=== PATIENT | male | born 1935 | race Caucasian/White ===

== ENCOUNTER → 2017-02-02 | Outpatient (CLI) | payer OTHER, MEDICARE | LOC: BHFA 13:30 | PROVIDERS: ATTEND Internal Medicine Cardiovascular Disease | DX: Z95.0 Presence of cardiac pacemaker (principal) | CPT/HCPCS: 78452; 93017; A9500; J2785 ==

== ENCOUNTER → 2017-02-25 | Outpatient (CLI) | payer OTHER, MEDICARE | LOC: BHFA 14:00 | PROVIDERS: ATTEND Internal Medicine Cardiovascular Disease | DX: I35.0 Nonrheumatic aortic (valve) stenosis (principal) ==

== ENCOUNTER 2017-06-28 10:44 | Observation (INO) | payer OTHER, MEDICARE ==
[2017-06-28] MEDS ORDERED: NS 1,000 ML IV ONE (10:48)
--- NOTE | 2017-06-28 11:18 | CPEKG ---
Heart Rate: 80 RR Interval: 750 P-R Interval: 176 QRSD Interval: 104 QT Interval: 388 QTC Interval: 448 P [place]: -18 QRS [place]: 269 T Wave [place]: -87 EKG Severity - ABNORMAL ECG - EKG Impression: ATRIAL-PACED COMPLEXES EKG Impression: LEFT ANTERIOR FASCICULAR BLOCK EKG Impression: PROBABLE RIGHT VENTRICULAR HYPERTROPHY EKG Impression: NONSPECIFIC T ABNORMALITIES, LATERAL LEADS Electronically Signed By: Eric Gonzalez 28-Jun-2017 12:01:34
[2017-06-28 11:28] LABS: PLATELET COUNT 203 10^3/uL (150-400)
--- NOTE | 2017-06-28 11:30 | PDANEPAE ---
ANE History of Present Illness 81 year old male for SVT ablation. 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 ANE Past Medical History - Cardiovascular History Hx Hypertension: Yes Hx Arrhythmias: Yes Hx Chest Pain: No Hx Coronary Artery / Peripheral Vascular Disease: Yes Hx Palpitations: No Cardiovascular History Comment: Has a pacemaker; Patient had a syncopal event this morning. - Pulmonary History Hx COPD: No Hx Asthma/Reactive Airway Disease: No Hx Recent Upper Respiratory Infection: No Hx Oxygen in Use at Home: No Hx Sleep Apnea: Yes Pulmonary History Comment: Has CPAP. - Endocrine History Hx Diabetes: No Hypothyroid: No Hyperthyroid: No Obesity: no - Renal History Hx Renal Disorders: No - Liver History Hx Hepatic Disorders: No - Neurological & Psychiatric Hx Hx Neurological and Psychiatric Disorders: No - Cancer History Hx Cancer: No - Congenital Disorder History Hx Congenital Disorders: No - GI History GERD: no Hx Gastrointestinal Disorders: No - Chronic Pain History Chronic Pain: Yes (Peripheral neuropathy) - Surgical History Prior Surgeries: ORIF, RIGHT PROXIMAL TIBIA ANE Review of Systems Review of Systems: - Exercise capacity Exercise capacity: >=4 METS - Pacemaker Date Pacemaker Last Checked: November 2013 ANE Patient History - Allergies Allergies/Adverse Reactions: No Known Allergies Allergy (Verified 04/20/14 16:18) - Home Medications Home medications: home medication list seen and reviewed Home Medications: Cholecalciferol Vit D3 [Vitamin D3 (*)] 1,000 units PO DAILY 11/27/13 [Last Taken 06/27/17] Clopidogrel Bisulfate [Plavix (*)] 75 mg PO DAILY 11/27/13 [Last Taken 06/27/17] Herbals/Supplements -Info Only 1 ea PO DAILY 12/18/13 [Last Taken 06/27/17] Pitavastatin Calcium [Livalo] 2 mg PO DAILY #0 04/20/14 [Last Taken 06/27/17] Aspirin EC [Aspirin EC 81 mg (*)] 81 mg PO DAILY 06/23/17 [Last Taken 06/27/17] Cyanocobalamin [Vitamin B12 (*)] 1,000 mcg PO DAILY 06/23/17 [Last Taken ] Metoprolol Succinate Xr [Toprol Xl 25 mg (*)] 12.5 mg PO DAILY 06/23/17 [Last Taken 06/23/17] Pregabalin [Lyrica 100mg (*)] 100 mg PO TID 06/23/17 [Last Taken 06/27/17] Spironolact/Hydrochlorothiazid [Spironolactone-Hctz 25-25 Tab] 1 each PO Q2D [Last Taken 06/27/17] - NPO status NPO Status: no food or drink >8 hours - Anes Hx Anes Hx: no prior problems - Smoking Hx Smoking Status: Never smoked Marijuana use: No - Alcohol Use Alcohol Use: Rarely - Family Anes Hx Family Anes Hx: neg - N/A ANE Labs/Vital Signs - Labs Result Diagrams: 06/28/17 11:20 06/28/17 11:20 - Vital Signs Vital Signs: reviewed preoperatively; see RN documention for details Height: 180 cm Weight: 86.2 kg ANE Physical Exam - Airway Neck exam: FROM Mallampati Score: Class 2 Mouth exam: abnormal chin Mouth image: 1 - Micro fractures in enamel of these teeth. - Pulmonary Pulmonary: no respiratory distress - Cardiovascular Cardiovascular: regular rate and rhythym - ASA Status ASA Status: III ANE Anesthesia Plan Anesthesia Plan: general endotracheal anesthesia Total IV Anesthesia: No
[2017-06-28 11:37] LABS: INR 0.99 (0.83-1.16); PROTIME(PATIENT) 13.3 SEC (12.0-15.0)
--- NOTE | 2017-06-28 12:28 | PDGENHP ---
History & Physical Chief Complaint: syncope this am History of Present Illness: presyncope with svt Relevant Physical Exam: [id number] cta [id number] Cardiorespiratory Assessment: syncope this am with svt, correlates with what looks like short run of at followed by avnrt 400 ms. plan eps and ablation
[2017-06-28] MEDS ORDERED: BUPIVACAINE 0.5% 30 ML SDV ONE (13:35)
[2017-06-28] MEDS ORDERED: LIDOCAINE 1% 300 MG/30 ML SDV ONE (13:35)
[2017-06-28] MEDS ORDERED: ISOPROTERENOL HCL/D5W 0.2 MG/50 ML BAG IV ONE ×2 (13:35→15:51)
[2017-06-28] MEDS ORDERED: HEPARIN 10,000 UNIT/10 ML MDV (1,000 UNIT/ML) ONE (13:35)
[2017-06-28] MEDS ORDERED: PROPOFOL 200 MG/20 ML VIAL ONE (13:39)
[2017-06-28] MEDS ORDERED: fentaNYL 100 MCG/2 ML INJ ONE (13:39)
[2017-06-28] MEDS ORDERED: DESFLURANE 240 ML BOTTLE IH ONE (13:50)
[2017-06-28] MEDS ORDERED: ROCURONIUM 50 MG/5 ML VIAL ONE (14:02)
[2017-06-28] MEDS ORDERED: DEXAMETHASONE 4 MG/ML VIAL ONE (14:06)
[2017-06-28] MEDS ORDERED: ONDANSETRON 4 MG/2 ML VIAL ONE (14:06)
[2017-06-28] MEDS ORDERED: PHENYLEPHRINE 10 MG/ML SDV ONE (14:23)
[2017-06-28] MEDS ORDERED: epHEDrine SULFATE 10 MG/ML SYR ONE ×3 (14:37→15:07)
[2017-06-28] MEDS ORDERED: SUGAMMADEX SODIUM 200 MG/2 ML VIAL IVP ONE (15:54)
[2017-06-28] MEDS ORDERED: fentaNYL 100 MCG/2 ML INJ IVP PRN (16:33)
[2017-06-28] MEDS ORDERED: LR 500 ML IV PRN (16:33)
[2017-06-28] MEDS ORDERED: PHENYLEPHRINE HCL 100 MCG/ML SYR IVP PRN (16:33)
[2017-06-28] MEDS ORDERED: ONDANSETRON 4 MG/2 ML VIAL IVP PRN (16:33)
[2017-06-28] MEDS ORDERED: NALOXONE HCL 0.4 MG/ML INJ IVP PRN (16:33)
--- NOTE | 2017-06-28 17:00 | EPPROC ---
Electrophysiology Procedure Note: ELECTROPHYSIOLOGIC STUDY AND CATHETER MEDIATED ABLATION OF SLOW/FAST AV CEFERINO REENTRY TACHYCARDIA AND 2 SEPARATE FOCAL RIGHT ATRIAL TACHYCARDIAS PROCEDURES PERFORMED: 26467-72 EP evaluation with RA/RV/LA pace/record, with arrhythmia induction 53084-19 EP evaluation with RA/RV pace record, insert/reposition catheter, with arrhythmia induction 95484 Intracardiac catheter ablation, SVT arrhythmogenic focus 43336 3D mapping Fluoroscopy INDICATION: PROCEDURE: Catheters & Anesthesia: The patient arrived in the Electrophysiology Laboratory in the fasting state. The right clavicular region, right groin, and left groin area were prepped and draped in the usual sterile manner. Anesthesiologist Dr. Rodriguez Damon administered general anesthesia. Appropriate non-invasive blood pressure, pulse oximetry and end-tidal CO2 monitoring was established. Patient had a pacemaker previously implanted. Pacemaker is programmed to lower rate of 80 beats per minute to suppress his PVCs, this successful in suppressing his PVCs. During the procedure, pacemaker was reprogrammed to VVI 30 beats per minute, postprocedure pacemaker was reprogrammed to 80-130 beats per minute, DDDR. All catheters were placed percutaneously using the modified Seldinger technique , and advanced into position under fluoroscopic guidance. One #6 Swazi hexapolar non-deflectable electrode catheter was inserted into the right atrial appendage via the left femoral vein (2mm spacing; except the proximal ring which was 25cm from the tip used for unipolar recordings). One #7 Swazi deflectable octapolar electrode catheter was advanced to the His-bundle position via the left femoral vein (2mm spacing). One #7 Swazi deflectable quadrapolar catheter was advanced to the anteroseptal right ventricle via the right femoral vein. One #7 Swazi deflectable catheter with 10 pairs of electrodes was placed via the right femoral vein into the coronary sinus. Heparin was given to keep ACT > 200 s. Programmed stimulation was performed from the right atrium, right ventricle and coronary sinus (left atrium). Parahisian pacing demonstrated constant H-A interval with changing V-A intervals and stimulus-A intervals during capture and loss of capture of proximal RBB proving retrograde conduction over AV node. 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 Ventricular extrastimuli delivered during tachycardia without altering antegrade His bundle activation did not advance next atrial potential, indicating that the tachycardia was not utilizing an accessory pathway for retrograde conduction. VA interval was 120 ms. Post entrainment of the tachycardia from the ventricle, there was VAHV response. Mapping of the right atrium and coronary sinus during AVNRT identified earliest atrial activation above the tendon of Aleena at a level slightly posterior to the level of the His bundle, consistent with retrograde conduction over the fast AV ceferino pathway. A #8 Swazi deflectable quadrapolar electrode catheter (2mm-5mm-2mm spacing) with 3.5 mm irrigated tip electrode and sensor for the 3D mapping Carto system was advanced to the right atrium. 3 D mapping of the inter-atrial septum and coronary sinus was performed and location of the AV node was marked. Agilis sheath was used. RF applications were delivered to the region between the tricuspid annulus and the coronary sinus ostium, at the level of the upper edge of the coronary sinus ostium. Radiofrequency applications were also delivered along the roof of the proximal coronary sinus. Junctional rhythm occurred during all of the RF applications. Two other atrial tachycardias were inducible. Atrial tachycardia 1., cycle length 420-440 milliseconds, ablated at the posterolateral superior aspect of right atrium. Atrial tachycardia 2, cycle length 460-490 milliseconds, ablated along the superior aspect of the Mona terminalis, posterior right atrium. High output pacing was performed at both ablation sites in order to avoid phrenic nerve ablation. Programmed stimulation was continued post ablation at baseline and during graded doses of isoproterenol upto 4mcg/min. 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 There were no echo beats. The catheters were removed. Sheaths were removed in the EP lab after applying subcutaneous purse string suture. The patient was transferred to the cardiovascular holding area in stable condition. There were no apparent complications. Results: A. Spontaneous Intervals: Pre ablation SCL 760 ms AH 150 ms HV 55 ms Post ablation SCL 630 ms AH 110 ms HV 55 ms B. Antegrade AV ceferino function (decremental pacing) Pre ablation FPERP 440 ms AH interval gradually increased to 270 milliseconds prior to Wenckebach AV block. Post ablation FPERP 400 ms longest AH interval post ablation was 190 milliseconds C. Retrograde AV ceferino function (decremental pacing) Pre ablation FPERP 490 ms WBB CL 480 ms D. Arrhythmias: Sustained slow/fast AVNRT Cycle length 420 ms, AH interval 300 ms, ANDERS interval 120 ms VA interval 0 ms AT1, cycle length 420-440 milliseconds, superior aspect of posterolateral right atrium AT2, cycle length 460-490 milliseconds, superior aspect of Mona terminalis CONCLUSIONS 1. 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 ( Slow/fast AVNRT). 2. Successful ablation of the slow AV ceferino pathway with elimination of 1:1 antegrade conduction over the slow AV ceferino pathway, all retrograde conduction over the slow AV ceferino pathway and the inducibility of AVNRT. 3. 2 separate focal atrial tachycardias in the superior aspect of the posterolateral right atrium and the superior aspect of Mona terminalis, successful ablation. 4. No complications. Patient Problems: Problems Problem Status Onset PVC (premature ventricular contraction) Acute Tibia/fibula fracture Acute Skier's thumb Acute
--- NOTE | 2017-06-28 17:01 | CPEKG ---
Heart Rate: 80 RR Interval: 750 P-R Interval: 260 QRSD Interval: 114 QT Interval: 412 QTC Interval: 476 P [place]: 16 QRS [place]: -48 T Wave [place]: 253 EKG Severity - ABNORMAL ECG - EKG Impression: SINUS RHYTHM EKG Impression: FIRST DEGREE AV BLOCK EKG Impression: INCOMPLETE RBBB AND LAFB EKG Impression: PRIOR ECG WITH "ATRIAL PACING". DIFFICULT TO DETERMINE IF THERE IS ATRIAL EKG Impression: PACING IN THIS ECG Electronically Signed By: Ozzie Leo 28-Jun-2017 17:23:27
[2017-06-29] MEDS: PREGABALIN 100 MG CAP PO SCH ×2 (01:37→08:56)
[2017-06-29 04:36] LABS: PLATELET COUNT 195 10^3/uL (150-400)
[2017-06-29 07:19] VITALS: BP 111/56
--- NOTE | 2017-06-29 08:55 | POSTANESTH ---
Post Anesthetic Evaluation Cardiovascular Status: Normal, Stable, Similar to Pre-Op Cond Respiratory Status: Normal, Stable, Similar to Pre-op Cond. Level of Consciousness/Mental Status: Can Participate in Eval, Alert and Oriented Pain Control: Adequate, Prn Tx Ordered Nausea/Vomiting Control: Adequate, Prn Tx Ordered Complications Possibly Related to Anesthesia: None Noted
[2017-06-29] MEDS ORDERED: METOPROLOL SUCCINATE XR 25 MG TAB PO SCH (09:00)
[2017-06-29] MEDS ORDERED: ATORVASTATIN CALCIUM 10 MG TAB PO SCH (09:00)
[2017-06-29] MEDS ORDERED: CYANO/VITAMIN B12 1000 MCG TAB PO SCH (09:00)
[2017-06-29] MEDS ORDERED: ASPIRIN 81 MG CHEWABLE TAB PO SCH (09:00)
[2017-06-29] MEDS ORDERED: CLOPIDOGREL BISULFATE 75 MG TAB PO SCH (09:00)
--- NOTE | 2017-06-29 09:01 | CPEKG ---
Heart Rate: 80 RR Interval: 750 P-R Interval: 256 QRSD Interval: 110 QT Interval: 392 QTC Interval: 453 P [place]: 39 QRS [place]: -76 T Wave [place]: 258 EKG Severity - ABNORMAL ECG - EKG Impression: ATRIAL-PACED COMPLEXES EKG Impression: FIRST DEGREE AV BLOCK EKG Impression: PROBABLE LEFT ATRIAL ABNORMALITY EKG Impression: LEFT ANTERIOR FASCICULAR BLOCK EKG Impression: Diffuse inferolateral T abnormalities, possibly related to T wave memory Electronically Signed By: Eric Gonzalez 29-Jun-2017 10:45:59
--- NOTE | 2017-06-29 10:09 | ASDISCHSUM ---
Discharge Information Plan Status:Home with No Needs Medically Cleared to Leave:06/29/2017 Discharge Date:06/29/2017 CM D/C Disposition:Home, Routine, Self-Care ADT D/C Disposition: Projected Discharge Date:06/29/2017 Transportation at D/C: Discharge Delay Reason: Follow-Up Date:06/29/2017 Discharge Slot: Final Diagnosis: Placement Information Patient Contact Information Contact Name:DEVON Relationship:Other Address: City:[facility] Alternate Phone: State/Zip Code:[place] Email: Financial Information Financial Class:Medicare Primary Plan Desc:MEDICARE OUTPATIENT Primary Plan Number:[id number] Secondary Plan Desc:STEPHANIE/CHRISTINA SUPPLEMENT Secondary Plan Number:[id number] Assessment Information LACE LACE Length of stay for Answers: Less than 1 day current admission Acuity / Level of Answers: No Care: Did the patient have an inpatient admission? Comorbidities - select Answers: Coronary Artery Disease all that apply Opioid dependence / Chronic pain Other Notes: HTN # of Emergency department Answers: 0 visits in the last 6 months Score: 7 Date Signed: 06/29/2017 10:08 AM Electronically Signed By:Judy Snell RN Intervention Information
--- NOTE | 2017-06-29 13:30 | ECHO ---
[email or web address] [address] Main: [phone] Fax: Transthoracic Echocardiogram Name: TEE BAUTISTA MR#: [id number] Study Date: 06/29/2017 Study Time: 09:47 AM Date of : 1935 Age: 81 year(s) Height: 180.3 cm (71 in.) Weight: 86.18 kg (190 lb.) BSA: 2.06 m2 Gender: Male Examination: Echo Indication: F/U post EP study/hx pacer Image Quality: Contrast: Requested by: Eric Gonzalez BP: 111 mmHg/56 mmHg Heart Rate: Rhythm: Indication: F/U post EP study/hx pacer Procedure Staff Hadoop Developer: Ana Ochoa RDCS Reading Physician: Eric Gonzalez MD Requesting Provider: Conclusions: Mild concentric LV hypertrophy. Normal global systolic LV function. There is a pacemaker lead noted in the right ventricle. The right atrium is mildly dilated. Mild mitral valve regurgitation is present. Moderate tricuspid regurgitation is present. Measurements: Chambers Valvular Assessment AV/MV Valvular Assessment TV/PV Normal Normal Normal Name Value Range Name Value Range Name Value Range Ao Daphney (MM): 3.7 cm (2.2 cm-3.7 AV meanP mmHg ( - ) TR Vmax: 2.20 mm/s ( - ) cm) NELSON (VTI): 1.3 cm ( - ) TR PGmax: 19 mmHg ( - ) IVSd (2D): 0.9 cm (0.6 cm-1.1 MV E Vmax: 0.94 m/s ( - ) syst. PAP: 24 mmHg ( - ) cm) MV A Vmax: 0.98 m/s ( - ) LVDd (2D): 4.5 cm (4.2 cm-5.9 MV E/A: 0.96 ( - ) cm) LVDs (2D): 2.7 cm (2.1 cm-4 cm) LVPWd (2D): 0.6 cm (0.6 cm-1 cm) LVOTd 2.0 cm 2.0 cm mm LVEF (MOD4): 67 % (>=55 %) EF Range: 70-75 % Continued Measurements: Chambers Valvular Assessment TV/PV Name Value Name Value LADs: 4.3 cm CVP (est.): 5 mmHg Patient: TEE BAUTISTA Study Date: 06/29/2017 Page 1 of 2 09:47 AM LADs Lon.6 cm LA Area: 13.1 cm2 Findings: Left Ventricle: Normal size left ventricle. Mild concentric LV hypertrophy. Normal global systolic LV function. The ejection fraction is estimated to be 70-75 %. No regional wall motion abnormality. Right Ventricle: Normal size right ventricle. There is a pacemaker lead noted in the right ventricle. Left Atrium: The left atrium is normal in size. Right Atrium: The right atrium is mildly dilated. Mitral Valve: Mild mitral annular calcification. Mild mitral valve regurgitation is present. Aortic Valve: Moderate aortic cusp calcification is present. Trivial aortic valve regurgitation. AV max PG is 19mmHG. AV mean PG is 11mmHG.. Tricuspid Valve: The tricuspid valve is normal in appearance and function. Moderate tricuspid regurgitation is present. The pulmonary artery pressure is normal. Pulmonic Valve: Pulmonary valve not well visualized. Aorta: The aorta is normal. Pericardium: No pericardial effusion. (No Signature Object) Patient: TEE BAUTISTA Study Date: 06/29/2017 Page 2 of 2 09:47 AM [id number]
--- NOTE | 2017-06-29 16:31 | GDS ---
[f rep st] DISCHARGE SUMMARY ADMISSION DIAGNOSES: 1. Plan for AVNRT ablation. 2. Tachycardia. 3. History of permanent pacemaker. 4. History of atrial fibrillation. DISCHARGE DIAGNOSIS: Successful AVNRT ablation with 2 focal right atrial tachycardia ablation. HOSPITAL COURSE: This gentleman was seen in clinic by Dr. Salas Amor on May 13, 2017. He was complaining of palpitations at that time. He has had numerous side effects to Xarelto, Pradaxa and other anticoagulants. They discuss consideration for Watchman LA closure device; however, it was fel t that he should try Coumadin first. Dr. Gonzalez had seen him previously and, due to his SVT, it was rec ommended for him to have ablation for the SVT. He was in agreement with this plan. He was taken to the EP lab by Dr. Gonzalez where he was successful with ablating the AVNRT and 2 focal right atrial tachyc ardias. There were no complications. He was taken to PCU for overnight observation where he has don e well. He has no chest pain, shortness of breath, palpitations. Telemetry shows sinus rhythm. At this time, he currently is stable for discharge. MEDICATIONS: He will go home on vitamin D3 1000 units daily, Plavix 75 mg daily, herbal supplements daily, Livalo 2 mg daily, vitamin B12 1000 mcg daily, aspirin enteric-coated 81 mg daily, metoprolol 12.5 mg daily, spironolactone hydrochlorothiazide 25/25 one every second day, Lyrica 100 mg three dmitry es daily. ALLERGIES: He has no known allergies. PHYSICAL EXAM: HEART: On day of discharge: Heart rate is regular. He does have a 3/6 systolic mur mur. No rubs or gallops are noted. LUNGS: Clear to auscultation. No wheezes, rales, or rhonchi. No peripheral edema. EXTREMITIES: Groin sites are intact with no bleeding, no ecchymosis noted. No tenderness. DISCHARGE PLAN: 1. He will follow up in clinic with Dr. Gonzalez in 10 days. 2. Groin precautions were reviewed with recommendation for no heavy lifting, pushing, pulling over 1 0 pounds over the next week. No sitting in a tub of water for the next week. 3. Should sites bleed, he is to hold firm continuous pressure and go to the nearest emergency room. 4. Full groin precaution guidelines were provided verbally and written. 5. He will follow up with Dr. Gonzalez in clinic. CONDITION ON DISCHARGE: At this time, he currently is stable for discharge. /[id number]/MODL
[2017-06-30] MEDS ORDERED: SPIRONOLACTONE 25 MG TAB PO SCH (09:00)
[2017-06-30] MEDS ORDERED: HYDROCHLOROTHIAZIDE PO SCH (09:00)
[2017-06-30] MEDS ORDERED: HYDROCHLOROTHIAZIDE 25 MG TAB PO SCH (09:00)
[2017-06-30] MEDS ORDERED: SPIRONOLACTONE PO SCH (09:00)
== END 2017-06-29 12:15 | disposition home or self-care (01) ==
LOC: FCATH 10:44 → F2W 15:49
PROVIDERS: ADMIT Internal Medicine Cardiovascular Disease; ATTEND Internal Medicine Cardiovascular Disease
DX: I47.1 Supraventricular tachycardia (principal); R55 Syncope and collapse; G47.33 Obstructive sleep apnea (adult) (pediatric); I10 Essential (primary) hypertension; G62.9 Polyneuropathy, unspecified; Z95.0 Presence of cardiac pacemaker
CPT/HCPCS: 93005; 93306; 93613; 93621; 93623; 93653; 93655; C1730; C1731; C1732; C1766; J1100; J1644; J2370; J2405; J2704; J3010

== ENCOUNTER 2017-12-24 17:42 | Inpatient (IN) | payer OTHER, MEDICARE ==
[2017-12-24] MEDS ORDERED: NS 1,000 ML IV ONE (17:48)
--- NOTE | 2017-12-24 17:50 | EDPHY ---
H & P Time Seen by Provider: 12/24/17 17:49 HPI/ROS: CHIEF COMPLAINT: Right hip pain HISTORY OF PRESENT ILLNESS: Patient is an 82-year-old man who slipped off of a step and fell onto his right hip. He has pain and deformity at the side as well as shortening and rotation of his leg. Normal pulses and sensation distally. He denies any injury to his arms head or neck. He refused pain medication for EMS. He has a history of hypertension and is on Plavix but no other blood thinners. He is not able to bear weight. Severity: Severe Modifying factors: Movement REVIEW OF SYSTEMS: Constitutional: denies: chills, fever, recent illness, recent injury EENTM: denies: blurred vision, double vision, nose congestion Respiratory: denies: cough, shortness of breath Cardiac: denies: chest pain, irregular heart rate, lightheadedness, palpitations Gastrointestinal/Abdominal: denies: abdominal pain, diarrhea, nausea, vomiting, blood streaked stools Genitourinary: denies: dysuria, frequency, hematuria, pain Musculoskeletal: See HPI Skin: denies: lesions, rash, jaundice, bruising Neurological: denies: headache, numbness, paresthesia, tingling, dizziness, weakness Hematologic/Lymphatic: denies: blood clots, easy bleeding, easy bruising Immunologic/allergic: denies: HIV/AIDS, transplant 10 systems reviewed and negative except as noted EXAM: GENERAL: Well-appearing, well-nourished and in no acute distress. HEAD: Atraumatic, normocephalic. EYES: Pupils equal round and reactive to light, extraocular movements intact, sclera anicteric, conjunctiva are normal. ENT: TMs normal, nares patent, oropharynx clear without exudates. Moist mucous membranes. NECK: Normal range of motion, supple without lymphadenopathy or JVD. LUNGS: Breath sounds clear to auscultation bilaterally and equal. No wheezes rales or rhonchi. HEART: Regular rate and rhythm without murmurs, rubs or gallops. ABDOMEN: Soft, nontender, normoactive bowel sounds. No guarding, no rebound. No masses appreciated. BACK: No CVA tenderness, no spinal tenderness, step-offs or deformities EXTREMITIES: The right hip pain, shortening and rotation. NEUROLOGICAL: Cranial nerves II through XII grossly intact. Normal speech. 5/ 5 strength, normal movement in all extremities, normal sensation, normal reflexes PSYCH: Normal mood, normal affect. SKIN: Warm, dry, normal turgor, no visible rashes or lesions. Source: Patient Exam Limitations: No limitations - Medical/Surgical History Hx Asthma: No Hx Chronic Respiratory Disease: No Hx Diabetes: No Hx Cardiac Disease: Yes Hx Renal Disease: No Hx Cirrhosis: No Hx Alcoholism: No Hx HIV/AIDS: No Hx Splenectomy or Spleen Trauma: No Other PMH: IA, CAD with stents, sleep apnea, peripheral neuropathy, pacemaker, CABG x5 2001, lymphoma - Family History Significant Family History: No pertinent family hx - Social History Smoking Status: Never smoked Alcohol Use: Sober Drug Use: None Constitutional: Initial Vital Signs Temperature (C) 36.8 C 12/24/17 17:47 Heart Rate 91 12/24/17 17:47 Respiratory Rate 18 12/24/17 17:47 Blood Pressure 158/65 H 12/24/17 17:47 O2 Sat (%) 94 12/24/17 17:47 O2 Delivery Mode Room Air Allergies/Adverse Reactions: No Known Allergies Allergy (Verified 04/20/14 16:18) Home Medications: Medication Instructions Recorded Cholecalciferol Vit D3 [Vitamin D3 1,000 units PO DAILY 11/27/13 (*)] Clopidogrel Bisulfate [Plavix (*)] 75 mg PO DAILY 11/27/13 Herbals/Supplements -Info Only 1 ea PO DAILY 12/18/13 Pitavastatin Calcium [Livalo] 2 mg PO DAILY #0 04/20/14 Aspirin EC [Aspirin EC 81 mg (*)] 81 mg PO DAILY 06/23/17 Cyanocobalamin [Vitamin B12 (*)] 1,000 mcg PO DAILY 06/23/17 Metoprolol Succinate Xr [Toprol Xl 12.5 mg PO DAILY 06/23/17 25 mg (*)] Pregabalin [Lyrica 100mg (*)] 100 mg PO TID 06/23/17 Spironolact/Hydrochlorothiazid 1 each PO Q2D 06/23/17 [Spironolactone-Hctz 25-25 Tab] Medical Decision Making - Diagnostics Imaging Results: Imaging Impressions Hip X-Ray 12/24/17 17:48 Impression: Nondisplaced intratrochanteric fracture of the right femur. Findings discussed with RICHARD RODRIGUES 12/24/2017 at 18:20. Imaging: Discussed imaging studies w/ credit office manager Radiologist ED Course/Re-evaluation: 6:30 p.m. We discussed the patient's x-ray results. He continues to decline pain medication he states as long as he stays still it is fine. I will admit to the medical service and consult Ortho. 6:35 p.m. I discussed the case with Dr. Gracia 6:40 p.m. Discussed the case with Dr. Lora who has come to the department to evaluate. Differential Diagnosis: Partial list of the Differential diagnosis considered include but were not limited to; hip fracture, contusion, pelvic injury and although unlikely based on the history and physical exam, I also considered femur fracture, head injury , neck injury, syncope. - Data Points Laboratory Results: Laboratory Results 12/24/17 18:00 12/24/17 18:00 12/24/17 12/24/17 12/24/17 18:00 18:00 18:00 WBC 7.79 10^3/uL 10^3/uL (3.80-9.50) RBC 4.94 10^6/uL 10^6/uL (4.40-6.38) Hgb 14.8 g/dL g/dL (13.7-17.5) Hct 41.6 % % (40.0-51.0) MCV 84.2 fL fL (81.5-99.8) MCH 30.0 pg pg (27.9-34.1) MCHC 35.6 g/dL g/dL (32.4-36.7) RDW 13.3 % % (11.5-15.2) Plt Count 190 10^3/uL 10^3/uL (150-400) MPV 11.3 fL fL (8.7-11.7) Neut % (Auto) 75.9 % H % (39.3-74.2) Lymph % (Auto) 15.9 % % (15.0-45.0) [place] % (Auto) 5.6 % % (4.5-13.0) Eos % (Auto) 1.0 % % (0.6-7.6) Baso % (Auto) 0.8 % % (0.3-1.7) Nucleat RBC Rel Count 0.0 % % (0.0-0.2) Absolute Neuts (auto) 5.91 10^3/uL 10^3/uL (1.70-6.50) Absolute Lymphs (auto) 1.24 10^3/uL 10^3/uL (1.00-3.00) Absolute Monos (auto) 0.44 10^3/uL 10^3/uL (0.30-0.80) Absolute Eos (auto) 0.08 10^3/uL 10^3/uL (0.03-0.40) Absolute Basos (auto) 0.06 10^3/uL 10^3/uL (0.02-0.10) Absolute Nucleated RBC 0.00 10^3/uL 10^3/uL (0-0.01) Immature Gran % 0.8 % % (0.0-1.1) Immature Gran # 0.06 10^3/uL 10^3/uL (0.00-0.10) PT 13.4 SEC SEC (12.0-15.0) INR 1.00 (0.83-1.16) APTT 27.8 SEC SEC (23.0-38.0) Sodium 138 mEq/L mEq/L (135-145) Potassium 3.9 mEq/L mEq/L (3.3-5.0) Chloride 101 mEq/L mEq/L (97-110) Carbon Dioxide 27 mEq/l mEq/l (22-31) Anion Gap 10 mEq/L mEq/L (6-14) BUN 27 mg/dL H mg/dL (7-23) Creatinine 1.1 mg/dL mg/dL (0.7-1.3) Estimated GFR > 60 Glucose 123 mg/dL H mg/dL (70-100) Calcium 9.5 mg/dL mg/dL (8.5-10.4) Medications Given: Discontinued Medications Sodium Chloride (Ns) 1,000 mls @ 0 mls/hr IV ONCE ONE; Wide Open PRN Reason: Protocol Stop: 12/24/17 17:49 Last Admin: 12/24/17 17:50 Dose: 1,000 mls Departure - Departure Disposition: [facility] Inpatient Acute Clinical Impression: Fracture, intertrochanteric, right femur Qualifiers: Encounter type: initial encounter Fracture type: closed Fracture alignment: nondisplaced Qualified Code(s): S72.144A - Nondisplaced intertrochanteric fracture of right femur, initial encounter for closed fracture Condition: Fair
[2017-12-24 18:35] LABS: PLATELET COUNT 190 10^3/uL (150-400)
[2017-12-24] MEDS ORDERED: ONDANSETRON DISINTEGRATING 4 MG TAB PO PRN (18:42)
[2017-12-24] MEDS ORDERED: HYDROmorphONE/DILAUDID 1 MG/ML INJ IVP PRN (18:42)
[2017-12-24] MEDS ORDERED: oxyCODONE IR 5 MG TAB PO PRN (18:42)
[2017-12-24] MEDS ORDERED: PROMETHAZINE HCL 25 MG/ML INJ IVP PRN (18:42)
[2017-12-24] MEDS ORDERED: ONDANSETRON 4 MG/2 ML VIAL IVP PRN (18:42)
[2017-12-24] MEDS ORDERED: HYDROCODONE/APAP 5/325 TAB PO PRN (18:42)
[2017-12-24] MEDS ORDERED: NS 1,000 ML IV SCH (18:45)
[2017-12-24 19:03] LABS: PROTIME(PATIENT) 13.4 SEC (12.0-15.0)
--- NOTE | 2017-12-24 19:20 | PDGENHP ---
History and Physical - Chief Complaint fall/hip pain - History of Present Illness 82 yo M with PMH of CAD, peripheral neuropathy and BPH presenting s/p mechanical fall with right hip pain and inability to move right leg. He notes he had been walking around a parking lot trying to find the kiosk so he could pay, he was getting a bit flustered and then tripped over a small curb. He fell onto his righ side and immediately had severe pain and inability to move his right leg. He notes that some people present were able to help him into an ambulance. He states he has a bit of issue with gait instability due to his peripheral neuropathy but despite that he has never had a fall this bad previously. He notes his health recently has otherwise been good--he has not had chest pain, no SOB, no difficulty with exercise of late. He does have a hx of BPH with 2 TURPs in the past and notes that he has been unable to urinate here in the ER although he feels as though his bladder is full. He has had that issue before in the hospital . History Information - Allergies/Home Medication List Allergies/Adverse Reactions: No Known Allergies Allergy (Verified 04/20/14 16:18) Home Medications: Cholecalciferol Vit D3 [Vitamin D3 (*)] 1,000 units PO DAILY 11/27/13 [Last Taken 12/24/17 08:00] Clopidogrel Bisulfate [Plavix (*)] 75 mg PO DAILY 11/27/13 [Last Taken 12/24/17 08:00] Herbals/Supplements -Info Only 1 ea PO DAILY 12/18/13 [Last Taken 12/24/17 08:00 ] Pitavastatin Calcium [Livalo] 2 mg PO DAILY #0 04/20/14 [Last Taken 12/24/17 08: 00] Aspirin EC [Aspirin EC 81 mg (*)] 81 mg PO DAILY 06/23/17 [Last Taken 12/24/17 08:00] Cyanocobalamin [Vitamin B12 (*)] 1,000 mcg PO DAILY 06/23/17 [Last Taken 08:00] Metoprolol Succinate Xr [Toprol Xl 25 mg (*)] 12.5 mg PO DAILY 06/23/17 [Last Taken 12/24/17 08:00] Pregabalin [Lyrica 100mg (*)] 100 mg PO TID 06/23/17 [Last Taken 12/24/17 08:00] Spironolact/Hydrochlorothiazid [Spironolactone-Hctz 25-25 Tab] 1 each PO Q2D [Last Taken 12/24/17 08:00] I have personally reviewed and updated: family history, medical history, social history, surgical history - Past Medical History coronary artery disease (sp 5v CABG and stents), hypertension, hyperlipidemia, SVT (with ablation and PPM) Additional medical history: BPH. peripheral neuropathy. gait instability - Surgical History Reports: coronary bypass surgery, pacemaker/AICD, coronary stent Additional surgical history: TURP x 2 - Family History Positive for: non-pertinent - Social History Smoking Status: Never smoked Alcohol Use: Rarely Drug Use: None Additional social history: lives alone Review of Systems Review of Systems: ROS: 10pt was reviewed & negative except for what was stated in HPI & below Physical Exam Physical Exam: Temp Pulse Resp BP Pulse Ox 36.8 C 72 18 145/86 H 95 12/24/17 17:47 12/24/17 18:00 12/24/17 18:00 12/24/17 18:00 12/24/17 18:00 Constitutional: no apparent distress, appears nourished Eyes: PERRL Ears, Nose, Mouth, Throat: moist mucous membranes, hearing normal Cardiovascular: regular rate and rhythym, no murmur, rub, or gallop, No edema Respiratory: no respiratory distress, no rales or rhonchi Gastrointestinal: normoactive bowel sounds, soft, non-tender abdomen Genitourinary: No no bladder fullness Skin: warm, normal color Musculoskeletal: joint tenderness Neurologic: AAOx3 Psychiatric: interacting appropriately, not anxious, not encephalopathic Lab Data & Imaging Review 12/24/17 18:00 12/24/17 18:00 WBC 7.79 10^3/uL (3.80-9.50) 12/24/17 18:00 RBC 4.94 10^6/uL (4.40-6.38) 12/24/17 18:00 Hgb 14.8 g/dL (13.7-17.5) 12/24/17 18:00 Hct 41.6 % (40.0-51.0) 12/24/17 18:00 MCV 84.2 fL (81.5-99.8) 12/24/17 18:00 MCH 30.0 pg (27.9-34.1) 12/24/17 18:00 MCHC 35.6 g/dL (32.4-36.7) 12/24/17 18:00 RDW 13.3 % (11.5-15.2) 12/24/17 18:00 Plt Count 190 10^3/uL (150-400) 12/24/17 18:00 MPV 11.3 fL (8.7-11.7) 12/24/17 18:00 Neut % (Auto) 75.9 % (39.3-74.2) H 12/24/17 18:00 Lymph % (Auto) 15.9 % (15.0-45.0) 12/24/17 18:00 [place] % (Auto) 5.6 % (4.5-13.0) 12/24/17 18:00 Eos % (Auto) 1.0 % (0.6-7.6) 12/24/17 18:00 Baso % (Auto) 0.8 % (0.3-1.7) 12/24/17 18:00 Nucleat RBC Rel Count 0.0 % (0.0-0.2) 12/24/17 18:00 Absolute Neuts (auto) 5.91 10^3/uL (1.70-6.50) 12/24/17 18:00 Absolute Lymphs (auto) 1.24 10^3/uL (1.00-3.00) 12/24/17 18:00 Absolute Monos (auto) 0.44 10^3/uL (0.30-0.80) 12/24/17 18:00 Absolute Eos (auto) 0.08 10^3/uL (0.03-0.40) 12/24/17 18:00 Absolute Basos (auto) 0.06 10^3/uL (0.02-0.10) 12/24/17 18:00 Absolute Nucleated RBC 0.00 10^3/uL (0-0.01) 12/24/17 18:00 Immature Gran % 0.8 % (0.0-1.1) 12/24/17 18:00 Immature Gran # 0.06 10^3/uL (0.00-0.10) 12/24/17 18:00 PT 13.4 SEC (12.0-15.0) 12/24/17 18:00 INR 1.00 (0.83-1.16) 12/24/17 18:00 APTT 27.8 SEC (23.0-38.0) 12/24/17 18:00 Sodium 138 mEq/L (135-145) 12/24/17 18:00 Potassium 3.9 mEq/L (3.3-5.0) 12/24/17 18:00 Chloride 101 mEq/L (97-110) 12/24/17 18:00 Carbon Dioxide 27 mEq/l (22-31) 12/24/17 18:00 Anion Gap 10 mEq/L (6-14) 12/24/17 18:00 BUN 27 mg/dL (7-23) H 12/24/17 18:00 Creatinine 1.1 mg/dL (0.7-1.3) 12/24/17 18:00 Estimated GFR > 60 12/24/17 18:00 Glucose 123 mg/dL (70-100) H 12/24/17 18:00 Calcium 9.5 mg/dL (8.5-10.4) 12/24/17 18:00 Visualized and Interpreted imaging results: Yes Interpretation: hip X ray: non displaced intratrochanteric femur fracture on the right Assessment & Plan Assessment: Fracture, intertrochanteric, right femur (Acute) 82 yo M with hx of CAD presenting s/p mechanical fall with right hip fracture # right intratrochanteric femur fracture: as a result of a mechanical fall, patient with fairly significant pain and inability to move the right leg. Ortho has been consulted and patient will require operative repair likely in am. For now, goal is pain control with prn narcotics as needed, NPO p MN. Patient does have a significant cardiac hx with both CAD and SVT, hx of CABG, stents and PPM. No active cardiac sxs however and patient with an RCRI score of 1 making him low risk for adverse cardiac event perioperatively. # urinary retention: patient with known bph requiring TURP in the past, will place hussein, retention may be due to pain medications # CAD: with hx of CABG and stents, as above, will continue current medications other than asa/statin which will be held pre op # SVT: s/p ablation, will get ecg pre op # peripheral neuropathy: contributing to propensity to fall, pt/ot to be involved after surgery # osteoporosis: given hip fx secondary to fall from standing, will f/u with PCP to determine further treatment # IP status, will require > 48 hours stay for eval/mgmt of above Patient new to my care. Old records reviewed and summarized as above. Care plan reviewed with ER doctor as above.
[2017-12-24] MEDS ORDERED: MAGNESIUM HYDROXIDE 30 ML UDCUP PO PRN (19:22)
[2017-12-24] MEDS ORDERED: POLYETHYLENE GLYCOL 3350 17 GM PKT PO PRN (19:22)
[2017-12-24] MEDS ORDERED: LACTULOSE 20 GM/30 ML UDCUP PO PRN (19:22)
[2017-12-24] MEDS ORDERED: BISACODYL 10 MG SUPP PR PRN (19:22)
--- NOTE | 2017-12-24 20:30 | GCON ---
DATE OF CONSULTATION: 12/24/2017 REASON FOR CONSULTATION: Right hip pain. HISTORY RELATIVE TO CONSULTATION: The patient is an 82-year-old community ambulator with an occasion al walking stick, who sustained a fall resulting in right hip pain, inability to ambulate. He denies any previous problems relative to his hip. EXAM RELATIVE TO CONSULTATION: EXTREMITIES: He is holding his hip in a slightly externally rotated position. Gentle motion produces pain in the right hip region. His leg lengths are grossly symmetri c. His distal neurovascular exam with the exception of some peripheral neuropathy is grossly intact. IMAGING: AP and lateral radiographs of his hip show evidence of a peritrochanteric femur fracture. ASSESSMENT: Right trochanteric femur fracture. PLAN: Based on the fracture pattern, it was recommended that operative treatment consisting of intra medullary nail fixation (trochanteric fixation nail) be performed. As patient ate at 4 o'clock today , this will be scheduled for tomorrow morning as soon as OR availability allows. /[id number]/MODL
[2017-12-24] MEDS: SENNOSIDES/DOCUSATE SODIUM TAB PO SCH (22:01)
[2017-12-24] MEDS: ACETAMINOPHEN 325 MG TAB PO PRN (22:02)
[2017-12-24] MEDS: PREGABALIN 100 MG CAP PO SCH (22:02)
[2017-12-25] MEDS: ACETAMINOPHEN 325 MG TAB PO PRN (03:11)
[2017-12-25 04:52] LABS: PLATELET COUNT 174 10^3/uL (150-400)
[2017-12-25] MEDS ORDERED: fentaNYL 250 MCG/5 ML INJ ONE (09:38)
[2017-12-25] MEDS ORDERED: PROPOFOL/EMULSION 500 MG/50 ML BOTTLE IV ONE (09:39)
[2017-12-25] MEDS: METOPROLOL SUCCINATE XR 25 MG TAB PO SCH (10:04)
[2017-12-25] MEDS ORDERED: BUPIVACAINE 0.5% 30 ML SDV ONE (10:13)
--- NOTE | 2017-12-25 10:19 | PDANEPAE ---
ANE History of Present Illness 82 year old male with right hip fracture following a fall. History of CAD, SVT s/p ablation, BP ANE Past Medical History - Cardiovascular History Hx Hypertension: Yes Hx Arrhythmias: Yes Hx Chest Pain: No Hx Coronary Artery / Peripheral Vascular Disease: Yes Hx Palpitations: No Cardiovascular History Comment: Has a pacemaker; Patient had a syncopal event this morning. - Pulmonary History Hx COPD: No Hx Asthma/Reactive Airway Disease: No Hx Recent Upper Respiratory Infection: No Hx Oxygen in Use at Home: No Hx Sleep Apnea: Yes Sleep Apnea Screening Result - Last Documented: Positive Pulmonary History Comment: Has CPAP. 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 Date Pacemaker Last Checked: November 2013 ANE Patient History - Allergies Allergies/Adverse Reactions: No Known Allergies Allergy (Verified 04/20/14 16:18) - Home Medications Home Medications: Cholecalciferol Vit D3 [Vitamin D3 (*)] 1,000 units PO DAILY 11/27/13 [Last Taken 12/24/17 08:00] Clopidogrel Bisulfate [Plavix (*)] 75 mg PO DAILY 11/27/13 [Last Taken 12/24/17 08:00] Herbals/Supplements -Info Only 1 ea PO DAILY 12/18/13 [Last Taken 12/24/17 08:00 ] Pitavastatin Calcium [Livalo] 2 mg PO DAILY #0 04/20/14 [Last Taken 12/24/17 08: 00] Aspirin EC [Aspirin EC 81 mg (*)] 81 mg PO DAILY 06/23/17 [Last Taken 12/24/17 08:00] Cyanocobalamin [Vitamin B12 (*)] 1,000 mcg PO DAILY 06/23/17 [Last Taken 08:00] Metoprolol Succinate Xr [Toprol Xl 25 mg (*)] 12.5 mg PO DAILY 06/23/17 [Last Taken 12/24/17 08:00] Pregabalin [Lyrica 100mg (*)] 100 mg PO TID 06/23/17 [Last Taken 12/24/17 08:00] Spironolact/Hydrochlorothiazid [Spironolactone-Hctz 25-25 Tab] 1 each PO Q2D [Last Taken 12/24/17 08:00] - NPO status NPO Since - Liquids (Date): 12/25/17 NPO Since - Liquids (Time): 00:00 NPO Since - Solids (Date): 12/25/17 NPO Since - Solids (Time): 00:00 - Smoking Hx Smoking Status: Never smoked - Alcohol Use Alcohol Use: Sober ANE Labs/Vital Signs - Labs Result Diagrams: 12/25/17 04:34 12/25/17 04:34 - Vital Signs Blood Pressure: 107/59 Heart Rate: 70 Respiratory Rate: 19 O2 Sat (%): 95 Height: 180.34 cm Weight: 79.832 kg ANE Physical Exam - Airway Neck exam: FROM Mallampati Score: Class 2 Mouth exam: normal dental/mouth exam - Pulmonary Pulmonary: no respiratory distress - Cardiovascular Cardiovascular: regular rate and rhythym - ASA Status ASA Status: III, E ANE Anesthesia Plan Anesthesia Plan: GA w LMA
[2017-12-25] MEDS ORDERED: CEFAZOLIN 2 GM/DEXTROSE/100 ML BAG IV ONE ×2 (10:20→10:21)
[2017-12-25] MEDS ORDERED: ceFAZolin 2 GM/DEXTROSE 100 ML IV ONE (10:21)
--- NOTE | 2017-12-25 10:24 | POSTOPPROG ---
Post Op Note Date of Operation: 12/25/17 Surgeon: Tre Lora Anesthesia: GET(General Endotracheal) Pre-op Diagnosis: R pertrochanteric femur fx Post-op Diagnosis: Same Procedure: R TFN Inf/Abcess present in the surg proc area at time of surgery?: No EBL: Minimal
[2017-12-25] MEDS ORDERED: D5W 1/2 NS W/ 20 KCl/L 1,000 ML IV SCH (10:30)
--- NOTE | 2017-12-25 10:35 | PDMN ---
Medical Necessity Medical [place] [facility] [id number] [place], Open Repair: 82 yo w/ right intratrochanteric femur fracture: as a result of a mechanical fall. Ortho consult, pt taken to OR for urgent surgery, s/p Intramedullary nail fixation ( trochanteric fixation nail). [facility] IP only. Hx coronary artery disease (sp 5v CABG and stents), hypertension, hyperlipidemia, SVT (with ablation and PPM), BPH. peripheral neuropathy. gait instability
[2017-12-25] MEDS: CHOLECALCIFEROL VIT D3 1,000 UNITS TAB PO SCH (10:49)
[2017-12-25] MEDS: PREGABALIN 100 MG CAP PO SCH ×3 (10:49→21:42)
[2017-12-25] MEDS ORDERED: ALBUTEROL 3 ML DEYVIAL IH PRN (10:50)
[2017-12-25] MEDS ORDERED: NALOXONE HCL 0.4 MG/ML INJ IVP PRN (10:50)
[2017-12-25] MEDS: SENNOSIDES/DOCUSATE SODIUM TAB PO SCH ×2 (10:50→21:43)
[2017-12-25] MEDS ORDERED: LABETALOL HCL 5 MG/ML 20 ML MDV IVP PRN (10:50)
[2017-12-25] MEDS ORDERED: fentaNYL 100 MCG/2 ML INJ IVP PRN (10:50)
--- NOTE | 2017-12-25 11:05 | HOSPPROG ---
Hospitalist Progress Note Assessment/Plan: Fracture, intertrochanteric, right femur (Acute) 82 yo M with hx of CAD presenting s/p mechanical fall with right hip fracture. First encounter, chart reviewed. # right intratrochanteric femur fracture: as a result of a mechanical fall patient with fairly significant pain and inability to move the right leg. To OR today has a significant cardiac hx with both CAD and SVT, hx of CABG, stents and PPM. No active cardiac sxs however and patient with an RCRI score of 1 making him low risk for adverse cardiac event perioperatively. # urinary retention: patient with known bph requiring TURP in the past, hussein, retention may be due to pain medications # CAD: with hx of CABG and stents, as above, will continue current medications other than asa/statin which will be held pre op given lopressor dose prior to OR # SVT: s/p ablation, EKG, atrial paced # peripheral neuropathy: contributing to propensity to fall, pt/ot to be involved after surgery # osteoporosis: given hip fx secondary to fall from standing, will f/u with PCP to determine further treatment # IP status, will require > 48 hours stay for eval/mgmt of above Pt/OT eval post op Subjective: Pain currently controlled prior to surgery. Feeling well. No other issues. Objective: Vital Signs Temp Pulse Resp BP Pulse Ox 36.6 C 70 19 107/59 L 95 12/25/17 10:16 12/25/17 10:19 12/25/17 10:19 12/25/17 10:19 12/25/17 10:19 Laboratory Results 12/25/17 04:34 12/25/17 04:34 12/24/17 12/25/17 12/26/17 05:59 05:59 05:59 Intake Total 1050 400 Output Total 1005 Balance 45 400 PT 13.4 SEC (12.0-15.0) 12/24/17 18:00 INR 1.00 (0.83-1.16) 12/24/17 18:00 - Physical Exam Constitutional: no apparent distress, appears nourished, not in pain Eyes: PERRL, anicteric sclera, EOMI Ears, Nose, Mouth, Throat: moist mucous membranes, hearing normal, ears appear normal Cardiovascular: regular rate and rhythym, No JVD, No edema Respiratory: no respiratory distress, clear to auscultation, reduced air movement Gastrointestinal: normoactive bowel sounds, No tenderness, No ascites Skin: warm, normal color, No mottled Musculoskeletal: pain with ROM, muscular tenderness, abnormal gait, generalized weakness Neurologic: AAOx3 Psychiatric: interacting appropriately, not anxious, not encephalopathic, thought process linear ICD10 Worksheet Patient Problems: Problems Problem Status Onset PVC (premature ventricular contraction) Acute Tibia/fibula fracture Acute Skier's thumb Acute Fracture, intertrochanteric, right femur Acute
--- NOTE | 2017-12-25 11:42 | POSTANESTH ---
Post Anesthetic Evaluation Cardiovascular Status: Normal, Stable Respiratory Status: Normal, Stable Level of Consciousness/Mental Status: Mildly Sleepy, Arousable Pain Control: Adequate, Prn Tx Ordered Nausea/Vomiting Control: Adequate, Prn Tx Ordered Complications Possibly Related to Anesthesia: None Noted
[2017-12-25] MEDS ORDERED: fentaNYL 100 MCG/2 ML INJ ONE (12:06)
--- NOTE | 2017-12-25 12:12 | GOP ---
DATE OF OPERATION: 12/25/2017 SURGEON: Tre Lora MD ANESTHESIA: General. PREOPERATIVE DIAGNOSIS: Right pertrochanteric femur fracture. POSTOPERATIVE DIAGNOSIS: Right pertrochanteric femur fracture. PROCEDURE PERFORMED: 1. Open treatment, right pertrochanteric femur fracture with intramedullary nail fixation (trochante colt fixation nail). 2. Intraoperative use of fluoroscopy. FINDINGS: ESTIMATED BLOOD LOSS: Minimal. INDICATIONS: The patient is an 82-year-old community ambulator who sustained a fall on the night rahda or to surgery, resulting in a right pertrochanteric femur fracture. Based on the nature of his injur y, it was recommended that operative treatment consisting of intramedullary nail fixation be pursued. The patient acknowledged he understood the potential risks of the operation including, but not limi dewey to, bleeding, infection, neurovascular damage, including loss of limb or limb function, malunion, nonunion, need for hardware removal, pain or functional limitations despite operative treatment, and anesthetic risks. He acknowledged he understood the potential risks, planned procedure, postop plan well, and had all questions answered prior to surgery. He gave his consent for the operative proced ure. DESCRIPTION OF PROCEDURE: The patient was brought to the operating after IV antibiotics were adminis tered. General anesthetic was administered. He was then transferred to the fracture traction table. The left leg was placed in a well-padded leg kc. The right foot was placed in a well-padded tr action boot. Closed reduction with slight distraction inward rotation was performed. Fluoroscopic v iews confirmed anatomic reduction of the fracture site. The right hip was prepped and draped in chad dard sterile fashion. A longitudinal incision was made in line with the femur proximal to the greate r trochanter. Skin and subcutaneous tissue were sharply incised. The gluteal fascia was incised in line with the skin incision. Dissection was carried with a hemostat down to the tip of the greater t rochanter. A guide pin from the [employer] trochanteric fixation nail was placed in the optimal startin g point on the tip of the greater trochanter and advanced down the intramedullary canal of the femur. Fluoroscopic views confirmed favorable positioning. The starting hole drill bit was then utilized to create a hole for nail insertion. An 11 mm diameter short trochanteric fixation nail was then int roduced down the intramedullary canal into the proper position. The aiming guide for the spiral blad e was then placed, and a guide pin was drilled into the center aspect of the femoral head. The pin p osition was confirmed fluoroscopically and found to be in the center of the head on both AP and later al planes less than 1 cm from the joint surface. After pre-drilling with 105 mm step drill, a spiral blade was inserted and position confirmed to be favorable fluoroscopically. The blade was then lock ed into the nail. A distal locking bolt was placed utilizing the aiming guide. Fluoroscopic views c onfirmed favorable implant and fracture positions. Attention was directed toward the closure. The gluteal fascia was closed with 2-0 Vicryl suture in i nterrupted fashion. Subcutaneous tissue closed with 3-0 Vicryl suture in interrupted fashion. Skin closed with skin jude proximally and Dermabond distally. The wounds were dressed with sterile Ada ptic, 4 x 4, and ABD. The patient was taken to the recovery room, extubated, in stable condition pos toperatively. All sponge, needle, and instrument counts were reported to be correct. DRAINS: None. COMPLICATIONS: None. PLAN: Patient will be readmitted for medical management and gait training. He may be weightbearing as tolerated on his operative extremity. /[id number]/MODL
--- NOTE | 2017-12-25 16:29 | ASMTCMCOM ---
CM Note CM Note Notes: 82yr old male admitted after a fall and R hip fx. He has a Hx of CAD-CABG w/stents, Pacer, OP, Peripheral neuropathy. He had surgery today. Therapies to al Tuesday for discharge needs. CM to follow. Date Signed: 12/25/2017 04:28 PM Electronically Signed By:Lois Davenport LCSW
[2017-12-26] MEDS: ACETAMINOPHEN 325 MG TAB PO PRN ×3 (00:37→14:53)
--- NOTE | 2017-12-26 06:04 | SOAPPROG ---
SOAP Progress Note Assessment/Plan: Assessment: R Pertroch femur fx Some pain when up Roger po Right thigh dressing intact, no D/C Limb lengthe and rotation equal Distal NV intact (except peripheral neuropathy) Plan: OOB/PT Probable SNF transfer OK for transfer from ortho standpoint 12/26/17 06:01 Objective: Vital Signs Temp Pulse Resp BP Pulse Ox 36.7 C 76 16 109/53 L 95 12/26/17 04:00 12/26/17 04:00 12/26/17 04:00 12/26/17 04:00 12/26/17 04:00 Laboratory Results 12/25/17 04:34 12/25/17 04:34 12/25/17 12/26/17 12/27/17 05:59 05:59 05:59 Intake Total 1050 1825 Output Total 1005 500 Balance 45 1325 PT 13.4 SEC (12.0-15.0) 12/24/17 18:00 INR 1.00 (0.83-1.16) 12/24/17 18:00 ICD10 Worksheet Patient Problems: Problems Problem Status Onset Fracture, intertrochanteric, right femur Acute PVC (premature ventricular contraction) Acute Skier's thumb Acute Tibia/fibula fracture Acute
--- NOTE | 2017-12-26 06:06 | PDIAF ---
- Diagnosis Code Status: Full Code - Medication Management Discharge Medications: Medications to Continue on Transfer Cholecalciferol Vit D3 [Vitamin D3 (*)] 1,000 units PO DAILY 11/27/13 [Last Taken 12/24/17 08:00] Clopidogrel Bisulfate [Plavix (*)] 75 mg PO DAILY 11/27/13 [Last Taken 12/24/17 08:00] Herbals/Supplements -Info Only 1 ea PO DAILY 12/18/13 [Last Taken 12/24/17 08:00 ] Pitavastatin Calcium [Livalo] 2 mg PO DAILY #0 04/20/14 [Last Taken 12/24/17 08: 00] Aspirin EC [Aspirin EC 81 mg (*)] 81 mg PO DAILY 06/23/17 [Last Taken 12/24/17 08:00] Cyanocobalamin [Vitamin B12 (*)] 1,000 mcg PO DAILY 06/23/17 [Last Taken 08:00] Metoprolol Succinate Xr [Toprol Xl 25 mg (*)] 12.5 mg PO DAILY 06/23/17 [Last Taken 12/24/17 08:00] Pregabalin [Lyrica 100mg (*)] 100 mg PO TID 06/23/17 [Last Taken 12/24/17 08:00] Spironolact/Hydrochlorothiazid [Spironolactone-Hctz 25-25 Tab] 1 each PO Q2D [Last Taken 12/24/17 08:00] Discharge Medications: Refer to the Discharge Home Medication list for PRN reason. - Orders Isolation Type: None Wound Care Instructions: Keep incision clean, dry, covered with 4 x 4. May use op site Date to Remove Sutures/[place]: 01/04/18 Activity/Weight Bearing Restrictions: WBAT RLE Additional Instructions: F/U Dr. Lora in 3 wks - Follow Up Care Current Providers and Referrals: Patient,NotPresent [Unknown] - As per Instructions
--- NOTE | 2017-12-26 08:46 | HOSPPROG ---
Hospitalist Progress Note Assessment/Plan: 82 yo M with hx of CAD presenting s/p mechanical fall with right hip fracture. First encounter, chart reviewed. *right intratrochanteric femur fracture -s/p repair *urinary retention: -hx of BPH, TURP * CAD -hx of CABG w Stents -asa and statin -resumed Plavix *SVT: -s/p ablation -atrial paced *peripheral neuropathy: * osteoporosis: given hip fx secondary to fall from standing, will f/u with PCP to determine further treatment *dvt prophylaxis: LMWH *plan: check H & H, platelet count Subjective: Morris is very concerned about walking today. Objective: Vital Signs Temp Pulse Resp BP Pulse Ox 36.9 C 70 14 115/57 L 94 12/26/17 08:00 12/26/17 08:00 12/26/17 08:00 12/26/17 08:00 12/26/17 08:00 Laboratory Results 12/25/17 04:34 12/25/17 04:34 12/25/17 12/26/17 12/27/17 05:59 05:59 05:59 Intake Total 1050 2325 Output Total 1005 1100 Balance 45 1225 PT 13.4 SEC (12.0-15.0) 12/24/17 18:00 INR 1.00 (0.83-1.16) 12/24/17 18:00 - Physical Exam Constitutional: no apparent distress Eyes: PERRL Ears, Nose, Mouth, Throat: hearing normal Respiratory: no respiratory distress Skin: warm, other (hip with swelling) Musculoskeletal: muscular tenderness, generalized weakness Neurologic: AAOx3 Psychiatric: interacting appropriately ICD10 Worksheet Patient Problems: Problems Problem Status Onset Fracture, intertrochanteric, right femur Acute PVC (premature ventricular contraction) Acute Skier's thumb Acute Tibia/fibula fracture Acute
[2017-12-26] MEDS: SENNOSIDES/DOCUSATE SODIUM TAB PO SCH ×2 (09:41→20:43)
[2017-12-26] MEDS: PREGABALIN 100 MG CAP PO SCH ×3 (09:41→20:44)
[2017-12-26] MEDS: CHOLECALCIFEROL VIT D3 1,000 UNITS TAB PO SCH (09:42)
[2017-12-26] MEDS: METOPROLOL SUCCINATE XR 25 MG TAB PO SCH (09:43)
[2017-12-26] MEDS: ENOXAPARIN 40 MG/0.4 ML SYR SC SCH (09:48)
[2017-12-26] MEDS ORDERED: PNEUMOC 13-VAL CONJ-DIP CRM/PF 0.5 ML SYR IM ONE (12:24)
--- NOTE | 2017-12-26 14:46 | ASMTCMCOM ---
CM Note CM Note Notes: PT/OT rec SNF; pt requests referral to [facility] and referral sent in Allscripts. CM to follow. Date Signed: 12/26/2017 02:45 PM Electronically Signed By:OLGA Varma
[2017-12-26] MEDS ORDERED: NS 1,000 ML IV SCH (16:45)
[2017-12-26] MEDS: ACETAMINOPHEN 500 MG TAB PO SCH (20:44)
[2017-12-27] MEDS: ACETAMINOPHEN 500 MG TAB PO SCH (05:18)
[2017-12-27 07:54] VITALS: BP 102/51
[2017-12-27] MEDS: ENOXAPARIN 40 MG/0.4 ML SYR SC SCH (08:30)
[2017-12-27] MEDS: CHOLECALCIFEROL VIT D3 1,000 UNITS TAB PO SCH (08:30)
[2017-12-27] MEDS: PREGABALIN 100 MG CAP PO SCH (08:30)
[2017-12-27] MEDS: METOPROLOL SUCCINATE XR 25 MG TAB PO SCH (08:31)
[2017-12-27] MEDS: SENNOSIDES/DOCUSATE SODIUM TAB PO SCH (08:32)
[2017-12-27] MEDS ORDERED: CLOPIDOGREL BISULFATE 75 MG TAB PO SCH (09:00)
[2017-12-27] MEDS ORDERED: CYANO/VITAMIN B12 1000 MCG TAB PO SCH (09:00)
--- NOTE | 2017-12-27 09:34 | HOSPPROG ---
Hospitalist Progress Note Assessment/Plan: 82 yo M with hx of CAD presenting s/p mechanical fall with right hip fracture. . *right intratrochanteric femur fracture -s/p repair *urinary retention: -hx of BPH, TURP * CAD -hx of CABG w Stents -asa and statin -resumed Plavix *anemia -stable *SVT: -s/p ablation -atrial paced *peripheral neuropathy: -takes Spironolactone for this * osteoporosis: given hip fx secondary to fall from standing, will f/u with PCP to determine further treatment *dvt prophylaxis: LMWH *plan: dc w f/u with Dr Lora Subjective: Morris is feeling well except for having some neuropathy pain. Objective: Vital Signs Temp Pulse Resp BP Pulse Ox 36.5 C 72 14 102/51 L 95 12/27/17 07:53 12/27/17 07:53 12/27/17 07:53 12/27/17 07:53 12/27/17 07:53 Laboratory Results 12/27/17 04:27 12/25/17 04:34 12/26/17 12/27/17 12/28/17 05:59 05:59 05:59 Intake Total 2325 500 Output Total 1100 1250 Balance 1225 -750 PT 13.4 SEC (12.0-15.0) 12/24/17 18:00 INR 1.00 (0.83-1.16) 12/24/17 18:00 - Physical Exam Constitutional: no apparent distress, appears nourished, uncomfortable Eyes: PERRL Ears, Nose, Mouth, Throat: hearing normal Cardiovascular: regular rate and rhythym, systolic murmur Respiratory: no respiratory distress Gastrointestinal: normoactive bowel sounds Skin: warm, other (r hip w swelling) Musculoskeletal: generalized weakness Neurologic: AAOx3 Psychiatric: interacting appropriately ICD10 Worksheet Patient Problems: Problems Problem Status Onset Fracture, intertrochanteric, right femur Acute PVC (premature ventricular contraction) Acute Skier's thumb Acute Tibia/fibula fracture Acute
--- NOTE | 2017-12-27 10:01 | PDIAF ---
- Diagnosis Diagnosis: right intertrocahnteric hip fx s/p repair Code Status: Full Code - Medication Management Discharge Medications: Medications to Continue on Transfer Cholecalciferol Vit D3 [Vitamin D3 (*)] 1,000 units PO DAILY 11/27/13 [Last Taken 12/24/17 08:00] Clopidogrel Bisulfate [Plavix (*)] 75 mg PO DAILY 11/27/13 [Last Taken 12/24/17 08:00] Herbals/Supplements -Info Only 1 ea PO DAILY 12/18/13 [Last Taken 12/24/17 08:00 ] Pitavastatin Calcium [Livalo] 2 mg PO DAILY #0 04/20/14 [Last Taken 12/24/17 08: 00] Aspirin EC [Aspirin EC 81 mg (*)] 81 mg PO DAILY 06/23/17 [Last Taken 12/24/17 08:00] Cyanocobalamin [Vitamin B12 (*)] 1,000 mcg PO DAILY 06/23/17 [Last Taken 08:00] Metoprolol Succinate Xr [Toprol Xl 25 mg (*)] 12.5 mg PO DAILY 06/23/17 [Last Taken 12/24/17 08:00] Pregabalin [Lyrica 100mg (*)] 100 mg PO TID 06/23/17 [Last Taken 12/24/17 08:00] Acetaminophen [Tylenol ES 500 mg (*)] 1,000 mg PO Q8HRS tab 12/27/17 [Last Taken Unknown] Enoxaparin [Lovenox 40 MG (*)] 40 mg SC DAILY #14 syr 12/27/17 [Last Taken Unknown] Polyethylene Glycol 3350 [Miralax 17 gm (*)] 17 gm PO DAILY PRN pkt 12/27/17 [ Last Taken Unknown] Sennosides/Docusate Sodium [Senokot-S] 1 - 2 tab PO BID tab 12/27/17 [Last Taken Unknown] Spironolact/Hydrochlorothiazid [Spironolactone-Hctz 25-25 Tab] 1 each PO Q2D #0 12/27/17 [Last Taken 12/24/17 08:00] oxyCODONE IR [Oxycodone Ir (*)] 5 - 10 mg PO Q3HRS PRN tab 12/27/17 [Last Taken Unknown] Discharge Medications: Refer to the Discharge Home Medication list for PRN reason. PICC Care - Routine: N/A - Orders Services needed: Physical Therapy, Occupational Therapy Isolation Type: None Oxygen: 1-2 liters Diet Recommendation: no restrictions on diet Diet Texture: Regular Texture Diet Wound Care Instructions: Keep incision clean, dry, covered with 4 x 4. May use op site Date to Remove Sutures/[place]: 01/04/18 Activity/Weight Bearing Restrictions: WBAT RLE Additional Instructions: F/U Dr. Lora in 3 wks aldactone,hctz have been on hold due to low bp, ok to give if systolic is >110 - Labs/Radiology BMP Date: 12/29/17 CBC w/diff Date: 12/29/17 - Follow Up Care Current Providers and Referrals: Tre Lora MD [Medical Doctor] - Patient,NotPresent [Unknown] - As per Instructions
--- NOTE | 2017-12-27 10:45 | GDS ---
DISCHARGE DIAGNOSES: 1. Right intratrochanteric femur fracture. 2. Urinary retention. 3. Coronary artery disease. 4. Anemia. 5. Supraventricular tachycardia. 6. Peripheral neuropathy. 7. Osteoporosis. CONSULTATION: Dr. Lora. HISTORY OF PRESENT ILLNESS: Briefly the patient is an 82-year-old male who has a history of coronary artery disease. He presented to the emergency room after he fell and sustained a right hip fracture. He was seen and evaluated by Dr. Lora, and on 12/25, he had an open treatment, right pertrochanteric femur fracture with intramedullary nail fixation. He has done well in the postop setting. He will follow up with Dr. Lora in the outpatient setting. Today, he will be discharged to [facility]. HOSPITAL COURSE: 1. Right intratrochanteric femur fracture. Overall doing very well. 2. Urinary retention, voiding. He has a history of BPH and a TURP. 3. Coronary artery disease, history of CABG with stents. I resumed his aspirin and Plavix therapy. He is also on a statin. 4. Anemia, stable. 5. SVT, none further. He is atrial paced. 6. Peripheral neuropathy. He takes spironolactone for this. Will resume this when his blood pressure is improved. 7. Osteoporosis. Further followup with his PCP. DISCHARGE CONDITION: Stable. Blood pressure is 102/51, heart rate is 84, respiratory rate of 14, O2 saturations on half a liter are 95%, temperature 36.5 Celsius. DISCHARGE MEDICATIONS: Please see the EMR. DISCHARGE INSTRUCTIONS: 1. Followup with Dr. Lora in 3 weeks. 2. To resume the Aldactone as long as his blood pressure is greater than 110. 3. Repeat labs as ordered. Greater than 30 minutes spent discharging and coordinating the patient's care. Copy requested to: Dr. Lora /[id number]/MODL MTDD
--- NOTE | 2017-12-27 11:16 | ASMTLACE ---
LACE Length of stay for Answers: 4-6 days current admission Acuity / Level of Answers: Yes Care: Did the patient have an inpatient admission? Comorbidities - select Answers: Coronary Artery Disease all that apply History of falls Peripheral vascular disease Other Notes: R hip fx, OP # of Emergency department Answers: 1-2 visits in the last 6 months Score: 15 Date Signed: 12/27/2017 11:15 AM Electronically Signed By:OLGA Varma
--- NOTE | 2017-12-27 11:17 | ASMTCMCOM ---
CM Note CM Note Notes: [facility] medically stable [facility]. Orders sent in Allscripts. Candi with [facility] scheduled wc transport for 11:30. Date Signed: 12/27/2017 11:16 AM Electronically Signed By:OLGA Varma
--- NOTE | 2017-12-27 13:39 | ASDISCHSUM ---
Discharge Information Plan Status:SNF Medically Cleared to Leave: Discharge Date:12/27/2017 12:59 PM CM D/C Disposition:[facility] ADT D/C Disposition:[facility] Care Facility Projected Discharge Date:12/27/2017 11:00 AM Transportation at D/C:Wheelchair Van Discharge Delay Reason: Follow-Up Date:12/27/2017 11:00 AM Discharge Slot: Final Diagnosis: Placement Information Referral Type:*Care Home/SNF Referral ID:[id number] Provider Name:[facility] Address 1:[address] Address 2: City:[place] Selection Factors: State:[place] Patient Contact Information Contact Name:DEVON Relationship:Other Address: City:[facility] Alternate Phone: State/Zip Code:[place] Email: Financial Information Financial Class:Medicare Primary Plan Desc:MEDICARE INPATIENT Primary Plan Number:[id number] Secondary Plan Desc:[employer]/MDR SUPPLEMENT Secondary Plan Number:[id number] Assessment Information LACE LACE Length of stay for Answers: 4-6 days current admission Acuity / Level of Answers: Yes Care: Did the patient have an inpatient admission? Comorbidities - select Answers: Coronary Artery Disease all that apply History of falls Peripheral vascular disease Other Notes: R hip fx, OP # of Emergency department Answers: 1-2 visits in the last 6 months Score: 15 Date Signed: 12/27/2017 11:15 AM Electronically Signed By:OLGA Varma [facility] CM Progress Note CM Note CM Note Notes: 82yr old male admitted after a fall and R hip fx. He has a Hx of CAD-CABG w/stents, Pacer, OP, Peripheral neuropathy. He had surgery today. Therapies to [facility] Tuesday for discharge needs. CM to follow. Date Signed: 12/25/2017 04:28 PM Electronically Signed By:Lois Davenport LCSW [facility] CM Progress Note CM Note CM Note Notes: PT/OT rec SNF; pt requests referral to [facility] and referral sent in Allscripts. CM to follow. Date Signed: 12/26/2017 02:45 PM Electronically Signed By:LOGA Varma [facility] CM Progress Note CM Note CM Note Notes: Pt medically stable for d/c to [facility] SNF. Orders sent in Allscripts. Candi with [facility] scheduled wc transport for 11:30. Date Signed: 12/27/2017 11:16 AM Electronically Signed By:OLGA Varma Intervention Information Intervention Type:*Incorrect Registration Date of Service:12/25/2017 09:49 AM Patient Type:Observation Staff Member:Palma Langley Hours: Discipline: Severity: Comment: Intervention Type:*IM-Signed Date of Service:12/27/2017 10:42 AM Patient Type:Inpatient Staff Member:Marija Segura Hours: Discipline: Severity: Comment:
--- NOTE | 2017-12-29 08:59 | CPEKG ---
Test Reason : OPEN Blood Pressure : / mmHG Vent. Rate : 070 BPM Atrial Rate : 070 BPM P-R Int : 212 ms QRS Dur : 108 ms QT Int : 609 ms P-R-T Axes : -56 -46 008 degrees QTc Int : 658 ms Atrial-paced complexes Incomplete RBBB and LAFB Consider right ventricular hypertrophy Prolonged QT interval Confirmed by Ozzie Leo ([id number]) on 12/29/2017 8:59:27 AM Referred By: Confirmed By:Ozzie Leo
== END 2017-12-27 12:59 | DRG 482 ==
LOC: EDUNIT# → OBSVTOIN 18:45 → F3N 20:08
PROVIDERS: ADMIT Internal Medicine; ATTEND Internal Medicine
PROC: 0QS606Z Reposition Right Upper Femur with Intramedullary Internal Fixation Device, Open Approach (ICD-10-PCS; principal; 2017-12-25 11:15)
DX: S72.101A Unspecified trochanteric fracture of right femur, initial encounter for closed fracture (principal); E86.9 Volume depletion, unspecified; R33.9 Retention of urine, unspecified; W01.0XXA Fall on same level from slipping, tripping and stumbling without subsequent striking against object, initial encounter; Y92.481 Parking lot as the place of occurrence of the external cause; I25.10 Atherosclerotic heart disease of native coronary artery without angina pectoris; D64.9 Anemia, unspecified; M81.0 Age-related osteoporosis without current pathological fracture; G62.9 Polyneuropathy, unspecified; N40.1 Benign prostatic hyperplasia with lower urinary tract symptoms; I10 Essential (primary) hypertension; Z95.810 Presence of automatic (implantable) cardiac defibrillator; Z95.1 Presence of aortocoronary bypass graft; Z95.5 Presence of coronary angioplasty implant and graft; Z23 Encounter for immunization
CPT/HCPCS: 97116-GP; 97161-GP; 97166-GO; 97530-GP; 97535-GO; C1713; G0008; G0009; G8978-GP-CK; G8979-GP-CJ; G8980-GP-CJ; G8987-GO-CL; G8988-GO-CI; J0690; J1650; J2704; J3010

== ENCOUNTER 2018-04-02 19:49 | Inpatient (IN) | payer OTHER, MEDICARE ==
[2018-04-02] MEDS ORDERED: NS 500 ML IV ONE (19:54)
[2018-04-02 20:11] LABS: PLATELET COUNT 200 10^3/uL (150-400)
[2018-04-02 20:19] LABS: INR 1.11 (0.83-1.16); PROTIME(PATIENT) 14.5 SEC (12.0-15.0)
--- NOTE | 2018-04-02 20:19 | EDPHY ---
H & P Time Seen by Provider: 04/02/18 19:54 HPI/ROS: HPI Found down at home. Altered mental status. 82-year-old male by ambulance. This patient was found laying prone on his floor by his ex- who sometimes checks on him. He currently lives alone in a house. The house was described by EMS as neat. He uses a walker to ambulate. He reports that last night he thinks he got up and was not able to find a walker and may have fallen at that time but he is not sure. He then tells me that this morning he thinks that he was sitting on his living room couch and was trying to transfer to the chair next to it and slipped off the couch. He does not know how long he was on the floor for. He does not have any significant complaints. He denies any associated chest pain. No palpitations. No headache. No neck pain. No loss of sensation or weakness in his extremities. He denies any extremity pain. He takes Plavix. ROS: Constitutional: No fever, no chills. As above. Eyes: No discharge. No changes in vision. ENT: No sore throat. No nasal congestion or rhinorrhea. Respiratory: No cough. No shortness of breath. Cardiac: No chest pain, no palpitations. Gastrointestinal: No abdominal pain, no vomiting, no diarrhea. Genitourinary: No hematuria. No dysuria or increased frequency with urination. Musculoskeletal: No back pain. No neck pain. No myalgias or arthralgias. Skin: No rashes. Neurological: No headache. No focal weakness or altered sensation. Past medical history: Dementia, [place], coronary artery disease with stents, sleep apnea, peripheral neuropathy, CABG x5 in 2001, lymphoma. Social history: Nonsmoker. Denies alcohol. Divorce. His ex- checks on him periodically. He currently lives alone. He ambulates with a walker. History of recent right hip surgery. Physical Exam: General Appearance: Alert, no distress. This patient is responding to questions in full sentences but is confused regarding events. This patient appears well-hydrated and well-nourished. Head: Normocephalic atraumatic. Face: Facial bones are stable on palpation. Eyes: Pupils equal and round and reactive to light at 3-2 mm bilaterally, no pallor or injection. No lid erythema or edema. ENT, Mouth: Mucous membranes moist. Dentition is intact. No malocclusion of the jaw. No tongue lacerations or abrasions. Pharynx is clear. The bilateral nasal canals are clear. No septal hematoma. Respiratory: There are no retractions, lungs are clear to auscultation with good air movement bilaterally. Chest wall is stable to AP and lateral palpation. Cardiovascular: Regular rate and rhythm. No murmur appreciated. Gastrointestinal: Abdomen is soft and nontender, no masses, bowel sounds normal. Neurological: Motor sensory function is intact. Cranial nerves are normal. Cerebellar function intact. Skin: Warm and dry, no rashes. No lacerations, abrasions or contusions. Musculoskeletal: Neck is supple and nontender. The trachea is midline. No midline cervical, thoracic, lumbar or sacral tenderness on palpation. No flank tenderness on palpation. Extremities are symmetrical, full range of motion. All joints in the bilateral upper and bilateral lower extremities range without pain or impingement. No tenderness on palpation of the long bones in the bilateral upper and bilateral lower extremities. Psychiatric: No agitation. No depression. Database: EKG: EKG time is 8:03 p.m.; EKG shows a narrow complex normal sinus rhythm with a ventricular rate of 83. The QT interval is prolonged. The CA, QRS intervals are within normal limits. There are no ST-T wave changes indicative of ischemic or injury pattern. No evidence of right heart strain. There is no evidence of WPW, Brugada syndrome, hypertrophic cardiomyopathy. Interpreted by me. Imaging: CT head without contrast: Age-related atrophy. Otherwise negative study. Results were discussed with staff radiologist Dr. Georges Dillard. Chest x-ray AP portable: No acute cardiopulmonary disease process noted. Interpreted by me. Procedures: Emergency department course: Triage vital signs reviewed. He is borderline febrile. Vital signs are otherwise normal. IV was placed. He was started on IV normal saline with 500 cc to be given over the next hour. EKG was obtained and reviewed by myself. CT head without contrast to be obtained. 8:50 p.m., the patient was re-evaluated. He has returned from CT scan. His neurologic Assessment is unchanged from prior. Nonfocal motor and sensory. I explained that we would admit him to the hospital. 9:10 p.m., the patient has developed fever. He will be given a g of Tylenol. No source identified yet. Urinalysis pending. 9:30 p.m., urinalysis indicates infection, he will be given 2 g of IV Rocephin. I spoke with the on-call hospitalist Dr. Green. His case was discussed with her in detail. She accepts this patient for admission to the hospitalist service. The patient's remaining emergency department course under my care has been uneventful. He was admitted in stable condition. Differential Diagnosis: The differential diagnosis on this patient includes but is not limited to, urinary tract infection, dementia, mechanical fall, CVA, intracranial bleed, acute coronary syndrome, syncope, arrhythmia, seizure. This represents a partial list of diagnoses considered. These considerations are based on history , physical exam, past history, reassessment and diagnostic testing. Smoking Status: Never smoked Constitutional: Initial Vital Signs O2 Sat (%) 94 04/02/18 19:54 O2 Delivery Mode Nasal Cannula O2 (L/minute) 2 Allergies/Adverse Reactions: No Known Allergies Allergy (Verified 04/20/14 16:18) Home Medications: Medication Instructions Recorded Cholecalciferol Vit D3 [Vitamin D3 1,000 units PO DAILY 11/27/13 (*)] Clopidogrel Bisulfate [Plavix (*)] 75 mg PO DAILY 11/27/13 Herbals/Supplements -Info Only 1 ea PO DAILY 12/18/13 Pitavastatin Calcium [Livalo] 2 mg PO DAILY #0 04/20/14 Aspirin EC [Aspirin EC 81 mg (*)] 81 mg PO DAILY 06/23/17 Cyanocobalamin [Vitamin B12 (*)] 1,000 mcg PO DAILY 06/23/17 Metoprolol Succinate Xr [Toprol Xl 12.5 mg PO DAILY 06/23/17 25 mg (*)] Pregabalin [Lyrica 100mg (*)] 100 mg PO TID 06/23/17 Acetaminophen [Tylenol ES 500 mg 1,000 mg PO Q8HRS tab 12/27/17 (*)] Enoxaparin [Lovenox 40 MG (*)] 40 mg SC DAILY #14 syr 12/27/17 Polyethylene Glycol 3350 [Miralax 17 gm PO DAILY PRN pkt 12/27/17 17 gm (*)] Sennosides/Docusate Sodium 1 - 2 tab PO BID tab 12/27/17 [Senokot-S] Spironolact/Hydrochlorothiazid 1 each PO Q2D #0 12/27/17 [Spironolactone-Hctz 25-25 Tab] oxyCODONE IR [Oxycodone Ir (*)] 5 - 10 mg PO Q3HRS PRN tab 12/27/17 Medical Decision Making - Diagnostics Imaging Results: Imaging Impressions Chest X-Ray 04/02/18 19:54 Impression: 1. No definite acute posttraumatic abnormality is identified. 2. See above report for additional findings. Head CT 04/02/18 19:54 Impression: 1. Mild atrophy and probable white matter small vessel disease. 2. Negative for acute intracranial abnormality, specifically negative for bleed. 3. See above report for additional findings. Results called and discussed with Alexsandra Roldan MD on 04/02/2018 at 20: 38. - Data Points Laboratory Results: Laboratory Results 04/02/18 19:53 04/02/18 19:53 04/02/18 04/02/18 04/02/18 21:10 20:05 19:53 WBC RBC Hgb Hct MCV MCH MCHC RDW Plt Count MPV Neut % (Auto) Lymph % (Auto) [place] % (Auto) Eos % (Auto) Baso % (Auto) Nucleat RBC Rel Count Absolute Neuts (auto) Absolute Lymphs (auto) Absolute Monos (auto) Absolute Eos (auto) Absolute Basos (auto) Absolute Nucleated RBC Immature Gran % Immature Gran # PT INR APTT Sodium 136 mEq/L mEq/L (135-145) Potassium 3.9 mEq/L mEq/L (3.5-5.2) Chloride 99 mEq/L mEq/L (97-110) Carbon Dioxide 26 mEq/l mEq/l (22-31) Anion Gap 11 mEq/L mEq/L (6-14) BUN 20 mg/dL mg/dL (7-23) Creatinine 1.2 mg/dL mg/dL (0.7-1.3) Estimated GFR 58 Glucose 114 mg/dL H mg/dL (70-100) Calcium 9.4 mg/dL mg/dL (8.5-10.4) Total Bilirubin 1.5 mg/dL H mg/dL (0.1-1.4) Conjugated Bilirubin 0.4 mg/dL mg/dL (0.0-0.5) Unconjugated Bilirubin 1.1 mg/dL mg/dL (0.0-1.1) AST 32 IU/L IU/L (17-59) ALT 28 IU/L IU/L (21-72) Alkaline Phosphatase 63 IU/L IU/L (38-126) Creatine Kinase 864 IU/L H IU/L (0-224) CK-MB (CK-2) Fraction 2.57 ng/mL ng/mL (0.00-4.55) CK-MB (CK-2) % Pending Creatine Kinase Interp Pending POC Troponin I 0.06 ng/mL ng/mL (0.00-0.08) Total Protein 6.8 g/dL g/dL (6.3-8.2) Albumin 4.3 g/dL g/dL (3.5-5.0) Urine Color IESHA Urine Appearance MODERATELY TURBID Urine pH 6.0 (5.0-7.5) Ur Specific [place] 1.018 (1.002-1.030) Urine Protein 2+ H (NEGATIVE) Urine Ketones NEGATIVE (NEGATIVE) Urine Blood 2+ H (NEGATIVE) Urine Nitrate NEGATIVE (NEGATIVE) Urine Bilirubin NEGATIVE (NEGATIVE) Urine Urobilinogen NEGATIVE EU EU (0.2-1.0) Ur Leukocyte Esterase 3+ H (NEGATIVE) Urine RBC 50-182 /hpf H /hpf (0-3) Urine WBC 50-182 /hpf H /hpf (0-3) Ur Epithelial Cells TRACE /lpf /lpf (NONE-1+) Urine Bacteria 2+ /hpf H /hpf (NONE SEEN) Urine Mucus TRACE /lpf /lpf (NONE-1+) Urine Glucose NEGATIVE (NEGATIVE) Urine Opiates Screen Pending Urine Barbiturates Pending Ur Phencyclidine Scrn Pending Ur Amphetamine Screen Pending U Benzodiazepines Scrn Pending Urine Cocaine Screen Pending U Marijuana (THC) Screen Pending Ethyl Alcohol < 10 mg/dL mg/dL (0-10) 04/02/18 04/02/18 19:53 19:53 WBC 17.08 10^3/uL H 10^3/uL (3.80-9.50) RBC 5.68 10^6/uL 10^6/uL (4.40-6.38) Hgb 16.6 g/dL g/dL (13.7-17.5) Hct 48.7 % % (40.0-51.0) MCV 85.7 fL fL (81.5-99.8) MCH 29.2 pg pg (27.9-34.1) MCHC 34.1 g/dL g/dL (32.4-36.7) RDW 13.1 % % (11.5-15.2) Plt Count 200 10^3/uL 10^3/uL (150-400) MPV 11.1 fL fL (8.7-11.7) Neut % (Auto) 86.9 % H % (39.3-74.2) Lymph % (Auto) 5.2 % L % (15.0-45.0) [place] % (Auto) 6.9 % % (4.5-13.0) Eos % (Auto) 0.0 % L % (0.6-7.6) Baso % (Auto) 0.3 % % (0.3-1.7) Nucleat RBC Rel Count 0.0 % % (0.0-0.2) Absolute Neuts (auto) 14.85 10^3/uL H 10^3/uL (1.70-6.50) Absolute Lymphs (auto) 0.88 10^3/uL L 10^3/uL (1.00-3.00) Absolute Monos (auto) 1.18 10^3/uL H 10^3/uL (0.30-0.80) Absolute Eos (auto) 0.00 10^3/uL L 10^3/uL (0.03-0.40) Absolute Basos (auto) 0.05 10^3/uL 10^3/uL (0.02-0.10) Absolute Nucleated RBC 0.00 10^3/uL 10^3/uL (0-0.01) Immature Gran % 0.7 % % (0.0-1.1) Immature Gran # 0.12 10^3/uL H 10^3/uL (0.00-0.10) PT 14.5 SEC SEC (12.0-15.0) INR 1.11 (0.83-1.16) APTT 28.1 SEC SEC (23.0-38.0) Sodium Potassium Chloride Carbon Dioxide Anion Gap BUN Creatinine Estimated GFR Glucose Calcium Total Bilirubin Conjugated Bilirubin Unconjugated Bilirubin AST ALT Alkaline Phosphatase Creatine Kinase CK-MB (CK-2) Fraction CK-MB (CK-2) % Creatine Kinase Interp POC Troponin I Total Protein Albumin Urine Color Urine Appearance Urine pH Ur Specific [place] Urine Protein Urine Ketones Urine Blood Urine Nitrate Urine Bilirubin Urine Urobilinogen Ur Leukocyte Esterase Urine RBC Urine WBC Ur Epithelial Cells Urine Bacteria Urine Mucus Urine Glucose Urine Opiates Screen Urine Barbiturates Ur Phencyclidine Scrn Ur Amphetamine Screen U Benzodiazepines Scrn Urine Cocaine Screen U Marijuana (THC) Screen Ethyl Alcohol Medications Given: Discontinued Medications Acetaminophen (Tylenol) 1,000 mg PO EDNOW ONE Stop: 04/02/18 21:31 Last Admin: 04/02/18 21:31 Dose: 1,000 mg Sodium Chloride (Ns) 500 mls @ 0 mls/hr IV ONCE ONE; Wide Open PRN Reason: Protocol Stop: 04/02/18 19:55 Last Admin: 04/02/18 20:02 Dose: 500 mls Point of Care Test Results: Chemistry 04/02/18 20:05 POC Troponin I 0.06 ng/mL ng/mL (0.00-0.08) Departure - Departure Disposition: [facility] Inpatient Acute Clinical Impression: Altered mental status, Urinary tract infection, Leukocytosis, Elevated CK Referrals: Patient,NotPresent [Unknown] - As per Instructions
[2018-04-02 20:25] LABS: CREATINE KINASE 864 IU/L (0-224)
[2018-04-02] MEDS ORDERED: ACETAMINOPHEN 500 MG TAB ONE (21:23)
[2018-04-02] MEDS ORDERED: ACETAMINOPHEN 500 MG TAB PO ONE (21:30)
[2018-04-02] MEDS ORDERED: ACETAMINOPHEN 325 MG TAB PO PRN (21:48)
[2018-04-02] MEDS ORDERED: ONDANSETRON DISINTEGRATING 4 MG TAB PO PRN (21:48)
[2018-04-02] MEDS ORDERED: HYDROmorphONE/DILAUDID 1 MG/ML INJ IVP PRN (21:48)
[2018-04-02] MEDS ORDERED: HYDROCODONE/APAP 5/325 TAB PO PRN (21:48)
[2018-04-02] MEDS ORDERED: oxyCODONE IR 5 MG TAB PO PRN (21:48)
[2018-04-02] MEDS ORDERED: PROMETHAZINE HCL 25 MG/ML INJ IVP PRN (21:48)
[2018-04-02] MEDS ORDERED: ONDANSETRON 4 MG/2 ML VIAL IVP PRN (21:48)
--- NOTE | 2018-04-02 21:54 | PDGENHP ---
History and Physical - Chief Complaint weakness - History of Present Illness 82 yo M with PMH of dementia, CAD, peripheral neuropathy and gait instability as well as recent fall with hip fracture s/p ORIF in December who presents from home after falling this morning and being unable to get up. Patient himself does not recall the event very well, what he does remember is that at some point either last night or this morning getting up to walk somewhere and ' slipping' to the ground in his kitchen and being unable to get up after that. He notes that he just had no strength at all. Apparently, per ED doctor report, patients ex reported that she had called the patient this morning and spoken to him on the phone at which time he was apparently normal with no complaints. 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 AT the time of my evaluation patient is awake and alert and other than not remembering how he got on the floor is oriented x 3 and denies any significant issues. He notes that prior to today's weakness he was not having any new issues including fever or chills, urinary issues, shortness of breath or chest pain. He states that overall since his surgery he has been getting stronger and has been ambulating with a walker but overall doing well with that. He states due to being on the floor all day, he has not had anything to eat or drink since this morning, and has not urinated very much. History Information - Allergies/Home Medication List Allergies/Adverse Reactions: No Known Allergies Allergy (Verified 04/20/14 16:18) Home Medications: Cholecalciferol Vit D3 [Vitamin D3 (*)] 1,000 units PO DAILY 11/27/13 [Last Taken 12/24/17 08:00] Clopidogrel Bisulfate [Plavix (*)] 75 mg PO DAILY 11/27/13 [Last Taken 12/24/17 08:00] Herbals/Supplements -Info Only 1 ea PO DAILY 12/18/13 [Last Taken 12/24/17 08:00 ] Pitavastatin Calcium [Livalo] 2 mg PO DAILY #0 04/20/14 [Last Taken 12/24/17 08: 00] Aspirin EC [Aspirin EC 81 mg (*)] 81 mg PO DAILY 06/23/17 [Last Taken 12/24/17 08:00] Cyanocobalamin [Vitamin B12 (*)] 1,000 mcg PO DAILY 06/23/17 [Last Taken 08:00] Metoprolol Succinate Xr [Toprol Xl 25 mg (*)] 12.5 mg PO DAILY 06/23/17 [Last Taken 12/24/17 08:00] Pregabalin [Lyrica 100mg (*)] 100 mg PO TID 06/23/17 [Last Taken 12/24/17 08:00] I have personally reviewed and updated: family history, medical history, social history, surgical history - Past Medical History coronary artery disease (sp 5v CABG and stents), hypertension, hyperlipidemia, SVT (with ablation and PPM) Additional medical history: BPH. peripheral neuropathy. gait instability - Surgical History Reports: coronary bypass surgery, pacemaker/AICD, coronary stent Additional surgical history: TURP x 2. ORIF December 2017 - Family History Positive for: non-pertinent - Social History Smoking Status: Never smoked Alcohol Use: None Drug Use: None Additional social history: lives alone Review of Systems Review of Systems: ROS: 10pt was reviewed & negative except for what was stated in HPI & below Physical Exam Physical Exam: Temp Pulse Resp BP Pulse Ox 39.1 C H 74 18 127/58 H 98 04/02/18 21:05 04/02/18 21:05 04/02/18 21:05 04/02/18 21:05 04/02/18 21:05 Constitutional: no apparent distress, appears nourished Eyes: PERRL, anicteric sclera Ears, Nose, Mouth, Throat: moist mucous membranes, hearing normal Cardiovascular: systolic murmur, No edema Respiratory: no respiratory distress, no rales or rhonchi Gastrointestinal: normoactive bowel sounds, soft, non-tender abdomen Genitourinary: no bladder tenderness Skin: warm, normal color Musculoskeletal: full muscle strength Neurologic: AAOx3, CN II-XII Intact Psychiatric: interacting appropriately, not anxious, not encephalopathic Lab Data & Imaging Review 04/02/18 19:53 04/02/18 19:53 WBC 17.08 10^3/uL (3.80-9.50) H 04/02/18 19:53 RBC 5.68 10^6/uL (4.40-6.38) 04/02/18 19:53 Hgb 16.6 g/dL (13.7-17.5) 04/02/18 19:53 Hct 48.7 % (40.0-51.0) 04/02/18 19:53 MCV 85.7 fL (81.5-99.8) 04/02/18 19:53 MCH 29.2 pg (27.9-34.1) 04/02/18 19:53 MCHC 34.1 g/dL (32.4-36.7) 04/02/18 19:53 RDW 13.1 % (11.5-15.2) 04/02/18 19:53 Plt Count 200 10^3/uL (150-400) 04/02/18 19:53 MPV 11.1 fL (8.7-11.7) 04/02/18 19:53 Neut % (Auto) 86.9 % (39.3-74.2) H 04/02/18 19:53 Lymph % (Auto) 5.2 % (15.0-45.0) L 04/02/18 19:53 [place] % (Auto) 6.9 % (4.5-13.0) 04/02/18 19:53 Eos % (Auto) 0.0 % (0.6-7.6) L 04/02/18 19:53 Baso % (Auto) 0.3 % (0.3-1.7) 04/02/18 19:53 Nucleat RBC Rel Count 0.0 % (0.0-0.2) 04/02/18 19:53 Absolute Neuts (auto) 14.85 10^3/uL (1.70-6.50) H 04/02/18 19:53 Absolute Lymphs (auto) 0.88 10^3/uL (1.00-3.00) L 04/02/18 19:53 Absolute Monos (auto) 1.18 10^3/uL (0.30-0.80) H 04/02/18 19:53 Absolute Eos (auto) 0.00 10^3/uL (0.03-0.40) L 04/02/18 19:53 Absolute Basos (auto) 0.05 10^3/uL (0.02-0.10) 04/02/18 19:53 Absolute Nucleated RBC 0.00 10^3/uL (0-0.01) 04/02/18 19:53 Immature Gran % 0.7 % (0.0-1.1) 04/02/18 19:53 Immature Gran # 0.12 10^3/uL (0.00-0.10) H 04/02/18 19:53 PT 14.5 SEC (12.0-15.0) 04/02/18 19:53 INR 1.11 (0.83-1.16) 04/02/18 19:53 APTT 28.1 SEC (23.0-38.0) 04/02/18 19:53 Sodium 136 mEq/L (135-145) 04/02/18 19:53 Potassium 3.9 mEq/L (3.5-5.2) 04/02/18 19:53 Chloride 99 mEq/L (97-110) 04/02/18 19:53 Carbon Dioxide 26 mEq/l (22-31) 04/02/18 19:53 Anion Gap 11 mEq/L (6-14) 04/02/18 19:53 BUN 20 mg/dL (7-23) 04/02/18 19:53 Creatinine 1.2 mg/dL (0.7-1.3) 04/02/18 19:53 Estimated GFR 58 04/02/18 19:53 Glucose 114 mg/dL (70-100) H 04/02/18 19:53 Calcium 9.4 mg/dL (8.5-10.4) 04/02/18 19:53 Total Bilirubin 1.5 mg/dL (0.1-1.4) H 04/02/18 19:53 Conjugated Bilirubin 0.4 mg/dL (0.0-0.5) 04/02/18 19:53 Unconjugated Bilirubin 1.1 mg/dL (0.0-1.1) 04/02/18 19:53 AST 32 IU/L (17-59) 04/02/18 19:53 ALT 28 IU/L (21-72) 04/02/18 19:53 Alkaline Phosphatase 63 IU/L (38-126) 04/02/18 19:53 Creatine Kinase 864 IU/L (0-224) H 04/02/18 19:53 CK-MB (CK-2) Fraction 2.57 ng/mL (0.00-4.55) 04/02/18 19:53 CK-MB (CK-2) % 0.3 % (0.0-4.0) 04/02/18 19:53 Creatine Kinase Interp NEGATIVE (NEGATIVE) 04/02/18 19:53 POC Troponin I 0.06 ng/mL (0.00-0.08) 04/02/18 20:05 Total Protein 6.8 g/dL (6.3-8.2) 04/02/18 19:53 Albumin 4.3 g/dL (3.5-5.0) 04/02/18 19:53 Urine Color IESHA 04/02/18 21:10 Urine Appearance MODERATELY TURBID 04/02/18 21:10 Urine pH 6.0 (5.0-7.5) 04/02/18 21:10 Ur Specific [place] 1.018 (1.002-1.030) 04/02/18 21:10 Urine Protein 2+ (NEGATIVE) H 04/02/18 21:10 Urine Ketones NEGATIVE (NEGATIVE) 04/02/18 21:10 Urine Blood 2+ (NEGATIVE) H 04/02/18 21:10 Urine Nitrate NEGATIVE (NEGATIVE) 04/02/18 21:10 Urine Bilirubin NEGATIVE (NEGATIVE) 04/02/18 21:10 Urine Urobilinogen NEGATIVE EU (0.2-1.0) 04/02/18 21:10 Ur Leukocyte Esterase 3+ (NEGATIVE) H 04/02/18 21:10 Urine RBC 50-182 /hpf (0-3) H 04/02/18 21:10 Urine WBC 50-182 /hpf (0-3) H 04/02/18 21:10 Ur Epithelial Cells TRACE /lpf (NONE-1+) 04/02/18 21:10 Urine Bacteria 2+ /hpf (NONE SEEN) H 04/02/18 21:10 Urine Mucus TRACE /lpf (NONE-1+) 04/02/18 21:10 Urine Glucose NEGATIVE (NEGATIVE) 04/02/18 21:10 Ethyl Alcohol < 10 mg/dL (0-10) 04/02/18 19:53 Visualized and Interpreted Chest x-ray results: Yes Chest X-Ray results: no infiltrate Visualized and Interpreted imaging results: Yes Interpretation: head CT: nothing acute Visualized and Interpreted EKG results: Yes EKG Interpretation: Positive for: normal sinsus rhythm EKG additional interpertation: prolonged qt Assessment & Plan Assessment: Altered mental status (Acute) Urinary tract infection (Acute) Leukocytosis (Acute) Elevated CK (Acute) 82 yo M with hx of CAD, dementia, peripheral neuropathy and gait instability presenting with generalized weakness and being down at home for unknown period of time with e/o UTI # generalized weakness: came on abruptly it seems and without much preceding sxs , currently patient feels stronger but still has not attempted walking, suspect related to infection as next, pt/ot/CM to evaluate. Will monitor on tele and get serial trops given hx of cad # UTI: UA consistent with infection and given generalized weakness suspect this represents true infection, started on ctx pending culture data, does have hx of BPH and chronic retention so will bladder scan as well # prolonged qt: without hx of syncope but patient with limited memory of the events preceding being on the ground, will monitor on tele, repeat ecg in am, avoid qt prolonging meds, check mag # metabolic encephalopathy: as evidenced by having lost a significant amount of time in terms of memory of what occurred prior to presentation however all in all largely seems improved at this point with patient oriented x 3 (slightly off on the date but very close), will continue to monitor, does have mild underlying dementia # recent hip fracture: s/p ORIF of right hip, no significant pain or deformity noted on exam but given weakness and patient being down will get hip xray to r/ o injury # rhabdomyolysis: mild in setting of being down for likely hours, will get repeat ck in am, IVF # peripheral neuropathy: possibly contributing to his difficulty getting up, pt/ ot # CAD: without c/o chest pain but as above will get serial trops and ecg # IP status, suspect patient will require > 48 hours stay for eval/mgmt of above Patient new to my care. Old records reviewed and summarized as above. care plan reviewed with ER doctor as above.
[2018-04-02] MEDS ORDERED: MAGNESIUM SULF 2 GM/WATER 50 ML IV ONE (22:11)
--- NOTE | 2018-04-02 23:10 | CPEKG ---
Test Reason : OPEN Blood Pressure : / mmHG Vent. Rate : 083 BPM Atrial Rate : 083 BPM P-R Int : 205 ms QRS Dur : 112 ms QT Int : 484 ms P-R-T Axes : -12 225 003 degrees QTc Int : 569 ms Sinus rhythm Prolonged QT interval Confirmed by Alexsandra Roldan ([id number]) on 04/02/2018 11:09:57 PM Referred By: Alexsandra Roldan Confirmed By:Alexsandra Roldan
[2018-04-03 07:48] LABS: PLATELET COUNT 171 10^3/uL (150-400)
[2018-04-03] MEDS: GLUCOSAMINE/CHONDROITIN CAP PO SCH ×2 (09:00→20:27)
[2018-04-03] MEDS ORDERED: HYDROCHLOROTHIAZIDE 25 MG TAB PO SCH (09:00)
[2018-04-03] MEDS ORDERED: PREGABALIN 100 MG CAP PO SCH (09:00)
[2018-04-03] MEDS: CYANO/VITAMIN B12 1000 MCG TAB PO SCH (09:01)
[2018-04-03] MEDS: SPIRONOLACTONE 25 MG TAB PO SCH ×2 (09:02→11:36)
[2018-04-03] MEDS: ASPIRIN EC 81 MG TAB PO SCH (09:02)
[2018-04-03] MEDS: ATORVASTATIN CALCIUM 10 MG TAB PO SCH (09:03)
[2018-04-03] MEDS: CLOPIDOGREL BISULFATE 75 MG TAB PO SCH (09:04)
[2018-04-03] MEDS: CHOLECALCIFEROL VIT D3 1,000 UNITS TAB PO SCH (09:04)
[2018-04-03] MEDS: ENOXAPARIN 40 MG/0.4 ML SYR SC SCH (09:09)
[2018-04-03 09:24] LABS: CREATINE KINASE 4100 IU/L (0-224)
--- NOTE | 2018-04-03 10:43 | ASMTCMCOM ---
CM Note CM Note Notes: Pts case discussed w/ Talita Machado NP and LALO Bill. Pt is a 82 y/o man admitted for confusion, found down at home, UTI and elevated CK. Pt has an ex that is involved. CM spoke to Kaitlynn with [facility]. She is recommending HC. Pt told her that he is not interested in SNF. PT/OT has been ordered and awaiting recommendations. Pt has private duty caregivers through [facility]. Wound care ordered. Needs are TBD at this time. CM to follow. Plan: TBD Date Signed: 04/03/2018 10:42 AM Electronically Signed By:DYLAN Davis
[2018-04-03] MEDS: NS 1,000 ML IV SCH ×2 (10:54→20:11)
--- NOTE | 2018-04-03 11:34 | WOCRNPDOC ---
WOCRN Advanced Assessment Note - Skin Integrity Problem, Advanced Assess Coccyx Dressing Type: Mepilex Border Dressing Description: Clean/Dry Exudate Amount: Scant Exudate Characteristic(s): Serous Integumentary Issue Intervention: Visualized Under Dressing Wound Bed Constitution: Red/[place] - Non Granular Tissue (100%) Wound Edges: Attached Site Measurement - Head-to-Toe Length X Width X Depth (cm): 1.4x1x0.1 Pressure Injury Stage: Stage 2 Pressure Injury Present on Admit: Yes Skin Integrity Problem Comment: Very shallow wound that is already epithelizing. No concerns. Education with patient re: pressure injury etiology, care and treatment plan. Wound care will follow. LALO Bill in room.
--- NOTE | 2018-04-03 11:41 | PDMN ---
Medical Necessity Medical necessity: [facility] M300 UTI, A-2 days: 82 yo w/ mechanical fall at home, unable to get up. Workup reveals acute UTI w/ AMS, leukocytosis and elevated CK. Temp 39.1. IVF and IV antibx started. Cont tele monitoring. PT/OT evals pending. Urine cx pending. Anticipate>2MN for monitoring and tx of above. Meets [facility] IP criteria for UTI w/ AMS, ongoing IV antibx needs beyond obs care. Hx dementia, CAD, CABG, HTN, HLD, SVT, TURP, pacemaker, peripheral neuropathy and gait instability as well as recent fall with hip fracture s/p ORIF in December 2017.
[2018-04-03] MEDS: PREGABALIN 100 MG CAP PO SCH ×2 (12:13→20:27)
--- NOTE | 2018-04-03 12:13 | HOSPPROG ---
Hospitalist Progress Note Assessment/Plan: 82 yo M with hx of CAD, dementia, peripheral neuropathy and gait instability presenting with generalized weakness and being down at home for unknown period of time with e/o UTI. First encounter, chart reviewed. # generalized weakness: -came on abruptly -currently patient feels stronger -still weak -suspect related to infection -pt/ot/CM to evaluate -Will monitor on tele -serial trops mildly elevated -cont to trend # UTI: -UA consistent with infection -on ctx -pending culture data -does have hx of BPH -pt doesn't not urinate enough or drink enough water # prolonged qt: -paced -without hx of syncope -will monitor on tele -repeat ecg reviewed,personally prolonged -avoid qt prolonging meds, DC Zofran -mag stable #Rhabdo -mild -elevated CPK -cont IVF hydration -increase rate to 150 -check labs in am # metabolic encephalopathy: -as evidenced by having lost a significant amount of time in terms of memory -seems improved at this point with patient oriented x 3 -continue to monitor, -does have mild underlying dementia #Fever -in the setting of UTI -BC not done -follow #Leukocytosis: -in the setting of infection -recheck labs in the am # recent hip fracture: -s/p ORIF of right hip, -no significant pain -if pain occurs consider xray # peripheral neuropathy: -possibly contributing to his difficulty getting up, pt/ot # CAD: -without c/o chest pain -mildly bumped trop -follow -paced #Dispo -follow trop -follow CPK -await urine cx -labs -PT/OT -will need [facility] PT/OT/SENIOR ANALYSIS SPECIALIST -possibly private duty arranged by his ex- -will not go to SNF -DC likely 1-2 days depending on labs and weakness # IP status, suspect patient will require > 48 hours stay for eval/mgmt of above Subjective: Feeling much better today. Still weak but better. No pain currently. Objective: Vital Signs Temp Pulse Resp BP Pulse Ox 37.6 C 70 18 118/53 L 94 04/03/18 11:29 04/03/18 11:29 04/03/18 11:29 04/03/18 11:29 04/03/18 11:29 Laboratory Results 04/03/18 07:40 04/03/18 07:40 04/02/18 04/03/18 04/04/18 05:59 05:59 05:59 Intake Total 1400 250 Output Total 200 300 Balance 1200 -50 PT 14.5 SEC (12.0-15.0) 04/02/18 19:53 INR 1.11 (0.83-1.16) 04/02/18 19:53 - Physical Exam Constitutional: no apparent distress, appears nourished, not in pain Eyes: PERRL, anicteric sclera, EOMI Ears, Nose, Mouth, Throat: moist mucous membranes, hearing normal, ears appear normal Cardiovascular: irregularly irregular, No JVD, No tachycardia, No edema Respiratory: no respiratory distress, no rales or rhonchi, reduced air movement Gastrointestinal: normoactive bowel sounds, No tenderness, No ascites Skin: warm, normal color, No mottled Musculoskeletal: normal joint ROM, no joint effusions, generalized weakness Neurologic: AAOx3 Psychiatric: not anxious, not encephalopathic, thought process linear, poor memory ICD10 Worksheet Patient Problems: Problems Problem Status Onset PVC (premature ventricular contraction) Acute Tibia/fibula fracture Acute Skier's thumb Acute Fracture, intertrochanteric, right femur Acute Altered mental status Acute Urinary tract infection Acute Leukocytosis Acute Elevated CK Acute
[2018-04-03] MEDS ORDERED: BUPIVACAINE 0.5% 30 ML SDV ONE (14:36)
--- NOTE | 2018-04-03 15:57 | CPEKG ---
Test Reason : OPEN Blood Pressure : / mmHG Vent. Rate : 071 BPM Atrial Rate : 072 BPM P-R Int : 158 ms QRS Dur : 119 ms QT Int : 596 ms P-R-T Axes : -39 262 005 degrees QTc Int : 648 ms Sinus rhythm Confirmed by Ja Lui ([id number]) on 04/03/2018 3:56:57 PM Referred By: Asa Prado Confirmed By:Ja Lui
[2018-04-04] MEDS: NS 1,000 ML IV SCH (03:04)
[2018-04-04 06:26] LABS: CREATINE KINASE 1221 IU/L (0-224)
--- NOTE | 2018-04-04 08:39 | HOSPPROG ---
Hospitalist Progress Note Assessment/Plan: 82 yo M with hx of CAD, dementia, peripheral neuropathy and gait instability presenting with generalized weakness and being down at home for unknown period of time with e/o UTI. First encounter, chart reviewed. # generalized weakness -suspect secondary to UTI -has an elevated trop/likely demand ischemia # UTI -ceftriaxone 04/02 -UA shows gram neg syed - sensitive -hx of BPH -fevers - will follow, no blood cx noted # prolonged qt: -paced -without hx of syncope -will monitor on tele -repeat ecg reviewed,personally prolonged -avoid qt prolonging meds, DC Zofran -mag stable #Rhabdo -improved today, will decrease fluids # metabolic encephalopathy -has underlying dementia -improving #Leukocytosis: -in the setting of infection -recheck labs in the am # recent hip fracture: -s/p ORIF of right hip, -no significant pain -is now fearful to go to any SNF-said it was a bad experience. # peripheral neuropathy: -possibly contributing to his difficulty getting up, pt/ot # CAD: -without c/o chest pain -mildly bumped trop -paced #Dispo: pending, will get blood cx due to ongoing fever/ spoke to Caitlin ([facility]) at 17:20 to update her on him. She has arranged 8 hours a day of care for him. She is his ex but helps Morris since he is alone. Subjective: Morris wants to go home badly. Objective: Vital Signs Temp Pulse Resp BP Pulse Ox 36.7 C 75 21 H 136/63 H 92 04/04/18 07:37 04/04/18 07:37 04/04/18 07:37 04/04/18 07:37 04/04/18 07:37 Laboratory Results 04/04/18 05:30 04/04/18 05:30 04/03/18 04/04/18 04/05/18 05:59 05:59 05:59 Intake Total 1400 5948 Output Total 200 1525 Balance 1200 4423 PT 14.5 SEC (12.0-15.0) 04/02/18 19:53 INR 1.11 (0.83-1.16) 04/02/18 19:53 - Physical Exam Constitutional: appears nourished Eyes: PERRL Ears, Nose, Mouth, Throat: hard of hearing Cardiovascular: regular rate and rhythym Respiratory: no respiratory distress Gastrointestinal: normoactive bowel sounds Skin: warm Musculoskeletal: full muscle strength Neurologic: AAOx3 Psychiatric: interacting appropriately, not encephalopathic, thought process linear, poor memory ICD10 Worksheet Patient Problems: Problems Problem Status Onset Altered mental status Acute Elevated CK Acute Leukocytosis Acute Urinary tract infection Acute Fracture, intertrochanteric, right femur Acute PVC (premature ventricular contraction) Acute Skier's thumb Acute Tibia/fibula fracture Acute
[2018-04-04] MEDS: GLUCOSAMINE/CHONDROITIN CAP PO SCH ×2 (09:06→21:13)
[2018-04-04] MEDS: CYANO/VITAMIN B12 1000 MCG TAB PO SCH (09:06)
[2018-04-04] MEDS: ASPIRIN EC 81 MG TAB PO SCH (09:07)
[2018-04-04] MEDS: PREGABALIN 100 MG CAP PO SCH ×3 (09:07→21:13)
[2018-04-04] MEDS: CHOLECALCIFEROL VIT D3 1,000 UNITS TAB PO SCH (09:07)
[2018-04-04] MEDS: CLOPIDOGREL BISULFATE 75 MG TAB PO SCH (09:07)
[2018-04-04] MEDS: ATORVASTATIN CALCIUM 10 MG TAB PO SCH (09:07)
[2018-04-04] MEDS: ENOXAPARIN 40 MG/0.4 ML SYR SC SCH (09:30)
--- NOTE | 2018-04-04 13:38 | ASMTCMCOM ---
CM Note CM Note Notes: CM met w/ pts ex and pt for dispo planning. PT is recommending SNF. Pt is currently getting 5hrs/daily. Ex reports that she can increase it to 8hrs/daily. Pt and ex is agreeable to having HC services through [facility]. Referral sent to [facility]. CM confirmed pts address and phone number. Anticipate d/c for tomorrow. CM to follow. Plan: [facility]; PT, OT Date Signed: 04/04/2018 01:37 PM Electronically Signed By:DYLAN Davis
[2018-04-05 05:37] LABS: PLATELET COUNT 140 10^3/uL (150-400)
[2018-04-05 05:52] LABS: CREATINE KINASE 669 IU/L (0-224)
[2018-04-05] MEDS ORDERED: PITAVASTATIN 2 MG PO SCH (09:00)
[2018-04-05] MEDS: PREGABALIN 100 MG CAP PO SCH ×2 (10:10→11:56)
[2018-04-05] MEDS: GLUCOSAMINE/CHONDROITIN CAP PO SCH (10:10)
[2018-04-05] MEDS: CLOPIDOGREL BISULFATE 75 MG TAB PO SCH (10:10)
[2018-04-05] MEDS: CYANO/VITAMIN B12 1000 MCG TAB PO SCH (10:10)
[2018-04-05] MEDS: CHOLECALCIFEROL VIT D3 1,000 UNITS TAB PO SCH (10:10)
[2018-04-05] MEDS: ASPIRIN EC 81 MG TAB PO SCH (10:11)
[2018-04-05] MEDS: ENOXAPARIN 40 MG/0.4 ML SYR SC SCH (10:11)
--- NOTE | 2018-04-05 11:13 | HOSPPROG ---
Hospitalist Progress Note Assessment/Plan: 82 yo M with hx of CAD, dementia, peripheral neuropathy and gait instability presenting with generalized weakness and being down at home for unknown period of time with e/o UTI. # generalized weakness -suspect secondary to UTI -has an elevated trop/likely demand ischemia # UTI -ceftriaxone 04/02 -UA shows gram neg syed - sensitive -hx of BPH -fevers - will follow, no blood cx noted # prolonged qt -without hx of syncope -tele shows mainly v paced rhythm w sinus and infrequent PVC #Rhabdo -much improved # metabolic encephalopathy -has underlying dementia -much clearer today, appropriate #Leukocytosis: -in the setting of infection -recheck labs in the am # recent hip fracture: -s/p ORIF of right hip, -no significant pain -is now fearful to go to any SNF-said it was a bad experience. # peripheral neuropathy: -possibly contributing to his difficulty getting up, pt/ot # CAD: -without c/o chest pain -mildly bumped trop -paced #Dispo:dc -patient will stay w his ex , aCitlin, until she can arrange 24hour care (this will likely be this Tuesday) Subjective: Morris is feeling much better today. Objective: Vital Signs Temp Pulse Resp BP Pulse Ox 36.6 C 87 18 141/67 H 94 04/05/18 08:00 04/05/18 08:00 04/05/18 08:00 04/05/18 08:00 04/05/18 08:00 Laboratory Results 04/05/18 04:30 04/05/18 04:30 04/04/18 04/05/18 04/06/18 05:59 05:59 05:59 Intake Total 5948 100 Output Total 1525 1080 100 Balance 4423 -980 -100 PT 14.5 SEC (12.0-15.0) 04/02/18 19:53 INR 1.11 (0.83-1.16) 04/02/18 19:53 - Physical Exam Constitutional: no apparent distress, appears nourished, not in pain Eyes: PERRL Ears, Nose, Mouth, Throat: hearing normal Cardiovascular: regular rate and rhythym Respiratory: no respiratory distress Skin: warm Musculoskeletal: generalized weakness Neurologic: AAOx3 Psychiatric: interacting appropriately, not encephalopathic, poor memory ICD10 Worksheet Patient Problems: Problems Problem Status Onset Altered mental status Acute Elevated CK Acute Leukocytosis Acute Urinary tract infection Acute Fracture, intertrochanteric, right femur Acute PVC (premature ventricular contraction) Acute Skier's thumb Acute Tibia/fibula fracture Acute
[2018-04-05 11:30] VITALS: BP 127/70
--- NOTE | 2018-04-05 11:41 | PDIAF ---
- Diagnosis Diagnosis: weakness, uti, mild rhabdomyolysis Code Status: Full Code - Medication Management Discharge Medications: electronically signed and located in the Home Medication List. - Orders Services needed: Home Care, Registered Nurse, Physical Therapy, Occupational Therapy Home Care Face to Face: I certify that this patient was under my care and that I had the required [id number] encounter meeting the encounter requirements on the discharge day. My findings support the fact that the patient is homebound as defined in Home Care Face to Face Continued: CMS Chapter 7 Medicare Benefits Manual 30.1.1 , The condition of the patient is such that there exists a normal inability to leave home and consequently, leaving home would require a considerable and taxing effort. Isolation Type: None Diet Recommendation: no restrictions on diet Diet Texture: Regular Texture Diet Additional Instructions: take the Keflex for 4 days as instructed, start April 06 your prescription was sent to [facility] here in the hospital; they will bring your prescription to you your blood culture is pending, call your primary care doctor and ask her to follow up with this on Tuesday/ you don't need to go in and see her stay well hydrated f/u with Roxy newberry cardiology - Follow Up Care Current Providers and Referrals: Roxy Peace PA [Physician Evaluator] - Patient,NotPresent [Unknown] - As per Instructions
--- NOTE | 2018-04-05 12:08 | ASMTLACE ---
ADAME Length of stay for Answers: 3 days current admission Acuity / Level of Answers: Yes Care: Did the patient have an inpatient admission? Comorbidities - select Answers: Any tumor (including all that apply lymphoma or leukemia) Coronary Artery Disease Dementia History of falls Previous myocardial infarction Other Notes: Peripheral neuropathy # of Emergency department Answers: 1-2 visits in the last 6 months Social determinants Answers: Lack of community resources and/or lack of social support (no pcp, lives alone, transportation, rachel d) Score: 23 Date Signed: 04/05/2018 12:07 PM Electronically Signed By:Cecile Bowers RN
--- NOTE | 2018-04-05 12:11 | ASMTDCNOTE ---
Case Management Discharge Discharge Order Complete? Answers: Yes Patient to Obtain Answers: via Family Medications Transportation Arranged Answers: Family/Friends Faxed Final Orders Answers: Yes Agency/Facility Transfer Answers: Yes Report Printed & Faxed to Receiving Agency Family Notified Answers: Yes Discharge Comments Notes: D/w ADMIN ASSISTANT, final orders in. Shira at [facility] notified that pt will staying with dex Tucker, she has arranged for 24hr care to beging at his home on Tuesday. Address: [address] [place] [address] Date Signed: 04/05/2018 12:11 PM Electronically Signed By:Cecile Bowers RN
--- NOTE | 2018-04-05 12:47 | GDS ---
[f rep st] DISCHARGE SUMMARY DISCHARGE DIAGNOSES: 1. Generalized weakness secondary to urinary tract infection. 2. Urinary tract infection. 3. History of benign prostatic hypertrophy. 4. Prolonged QT without history of syncope. 5. Rhabdomyolysis, mild. 6. Metabolic encephalopathy with underlying dementia. 7. Leukocytosis. 8. Recent hip fracture status post open reduction internal fixation. 9. Peripheral neuropathy. 10. Coronary artery disease without chest pain. HISTORY OF PRESENT ILLNESS: Briefly, the patient is an 82-year-old gentleman with a history of dementia, coronary artery disease, peripheral neuropathy, and gait instability. Of note, he had a recent fall in December and sustained a hip fracture. He had an ORIF at that time. He was at home and noted that he had no strength. His ex- reportedly called him in the morning, and he had no complaints. Later that day, he did not burr picker the phone, so she came by to check on him and she found him on the floor. He was awake and alert. He was admitted, it was noted that he had a urinary tract infection. In addition, he had rhabdomyolysis, likely being down on the ground. He was treated with IV fluids. This is much improved. The plan is for him to go stay with his ex- for the next several days until 24 hour care can be arranged in his home. The patient is adamant about not returning to a halfway facility. He did not have a good experience on his last discharge after he had his hip fracture. He will be discharged home and further follow up with his linux admin engineer, as well as his primary care doctor. HOSPITAL COURSE: 1. Generalized weakness. This is most likely secondary to a urinary tract infection. He also had an elevated troponin. I suspect this is demand ischemia from being down on the ground. 2. Urinary tract infection. His urinalysis showed gram-negative rods. He has a history of BPH. He has had some fevers. Blood cultures are pending. These were drawn after antibiotics were given. 3. Prolonged QT. Reviewed his residential monitor. He has been mainly V paced with intermittent sinus and infrequent PVCs. Further followup with Roxy Peace, Physician Academic Support Director. 4. Rhabdomyolysis, much improved. 5. Metabolic encephalopathy. He has underlying dementia. He is much clearer today. 6. Leukocytosis, stable. 7. Recent hip fracture status post ORIF in December. 8. Peripheral neuropathy. This is likely contributing his weakness. 9. Coronary artery disease. He has had no chest pain. He is in a paced rhythm. DISCHARGE CONDITION: Stable. Blood pressure is 127/70, heart rate is 74, respiratory rate is 17, O2 saturations on room air are 92%. Temperature is 37.2 Celsius. MEDICATIONS AT DISCHARGE: Please see the EMR. PENDING LABS: Blood cultures are pending. DISCHARGE INSTRUCTIONS: 1. Follow up with CATHY Castaneda, make an appointment. 2. Start the Keflex tomorrow. 3. Stay well hydrated. 4. Home Care to follow up with the patient in regard to physical therapy, occupational therapy, and nursing care. Greater than 30 minutes discharging and coordinating his care. 4. Follow up with his primary care provider and have her follow up with his pending blood cultures. /[id number]/MODL MTDD
--- NOTE | 2018-04-05 16:44 | ASDISCHSUM ---
Discharge Information Plan Status:Home with Home Health Medically Cleared to Leave: Discharge Date:04/05/2018 03:09 PM CM D/C Disposition:Home Health Service ADT D/C Disposition:Home Health Service Projected Discharge Date:04/04/2018 11:00 AM Transportation at D/C:Family Discharge Delay Reason: Follow-Up Date:04/04/2018 11:00 AM Discharge Slot: Final Diagnosis: Placement Information Referral Type:*Home Health Care Services Referral ID:[facility]-[id number] Provider Name:[facility] Address 1:[address] Address 2: City:[place] Selection Factors: State:[place] Patient Contact Information Contact Name:DEVON Relationship:Other Address: City:[facility] Alternate Phone: [facility] Code:[place] Email: Financial Information Financial Class:Medicare Primary Plan Desc:MEDICARE INPATIENT Primary Plan Number:[id number] Secondary Plan Desc:[employer]ARP/MDR SUPPLEMENT Secondary Plan Number:[id number] Assessment Information [facility] CM Progress Note CM Note CM Note Notes: Pts case discussed w/ Talita Machado NP and LALO Bill. Pt is a 82 y/o man admitted for confusion, found down at home, UTI and elevated CK. Pt has an ex that is involved. CM spoke to Kaitlynn with [facility]. She is recommending HC. Pt told her that he is not interested in SNF. PT/OT has been ordered and awaiting recommendations. Pt has private duty caregivers through [facility]. Wound care ordered. Needs are TBD at this time. CM to follow. Plan: TBD Date Signed: 04/03/2018 10:42 AM Electronically Signed By:DYLAN Davis LACE LACE Length of stay for Answers: 3 days current admission Acuity / Level of Answers: Yes Care: Did the patient have an inpatient admission? Comorbidities - select Answers: Any tumor (including all that apply lymphoma or leukemia) Coronary Artery Disease Dementia History of falls Previous myocardial infarction Other Notes: Peripheral neuropathy # of Emergency department Answers: 1-2 visits in the last 6 months Social determinants Answers: Lack of community resources and/or lack of social support (no pcp, lives alone, transportation, rachel d) Score: 23 Date Signed: 04/05/2018 12:07 PM Electronically Signed By:Cecile Bowers RN [facility] CM Progress Note CM Note CM Note Notes: CM met w/ pts ex and pt for dispo planning. PT is recommending SNF. Pt is currently getting 5hrs/daily. Ex reports that she can increase it to 8hrs/daily. Pt and ex is agreeable to having HC services through [facility]. Referral sent to [facility]. CM confirmed pts address and phone number. Anticipate d/c for tomorrow. CM to follow. Plan: [facility]; PT, OT Date Signed: 04/04/2018 01:37 PM Electronically Signed By:DYLAN Davis Case Management Discharge Plan Note Case Management Discharge Discharge Order Complete? Answers: Yes Patient to Obtain Answers: via Family Medications Transportation Arranged Answers: Family/Friends Faxed Final Orders Answers: Yes Agency/Facility Transfer Answers: Yes Report Printed & Faxed to Receiving Agency Family Notified Answers: Yes Discharge Comments Notes: D/w PORCELAIN SLUSHER, final orders in. Shira at [facility] notified that pt will staying with dex Tucker, she has arranged for 24hr care to beging at his home on Tuesday. Address: [address] [place] [address] Date Signed: 04/05/2018 12:11 PM Electronically Signed By:Cecile Bowers RN Intervention Information Intervention Type:*IM-Signed Date of Service:04/05/2018 11:14 AM Patient Type:Inpatient Staff Member:Marija Segura Hours: Discipline: Severity: Comment:
[2018-04-06] MEDS ORDERED: PITAVASTATIN 2 MG PO SCH (09:00)
== END 2018-04-05 15:09 | disposition home health service (06) | DRG 689 ==
LOC: EDUNIT# → F3E 23:19
PROVIDERS: ADMIT Internal Medicine; ATTEND Internal Medicine
DX: N39.0 Urinary tract infection, site not specified (principal); G93.41 Metabolic encephalopathy; M62.82 Rhabdomyolysis; I45.81 Long QT syndrome; F03.90 Unspecified dementia, unspecified severity, without behavioral disturbance, psychotic disturbance, mood disturbance, and anxiety; G62.9 Polyneuropathy, unspecified; I25.10 Atherosclerotic heart disease of native coronary artery without angina pectoris; L89.152 Pressure ulcer of sacral region, stage 2; R26.81 Unsteadiness on feet; Z95.0 Presence of cardiac pacemaker; Z95.1 Presence of aortocoronary bypass graft
CPT/HCPCS: 80305; 84484-ER; 92507-GN; 92523-GN; 96365; 97116-GP; 97162-GP; 97166-GO; 97535-GO; G0480; J0696; J1650; J3475

== ENCOUNTER → 2018-06-07 | Outpatient (CLI) | payer OTHER, MEDICARE | LOC: FIMAGING 12:42 | PROVIDERS: ATTEND Internal Medicine | DX: Z13.820 Encounter for screening for osteoporosis (principal); M85.89 Other specified disorders of bone density and structure, multiple sites; Z87.81 Personal history of (healed) traumatic fracture ==

== ENCOUNTER 2018-08-10 12:21 | Emergency (ER) | payer OTHER, MEDICARE | END 2018-08-10 15:59 | disposition home or self-care (01) ==